=== PATIENT | female | born 2000 ===

== ENCOUNTER 2021-04-25 19:47 | Emergency (ER) | payer SELFPAY | END 2021-04-26 04:24 | LOC: ED 19:47 | DX: F10.20 Alcohol dependence, uncomplicated (principal); Y90.9 Presence of alcohol in blood, level not specified; Z53.21 Procedure and treatment not carried out due to patient leaving prior to being seen by health care provider ==

== ENCOUNTER 2021-04-27 16:25 | Inpatient (IN) | payer SELFPAY ==
--- NOTE | 2021-04-27 16:46 | Emergency Department Report ---
HPI - General Time Seen by Provider: 04/27/21 16:42 - HPI HPI: This is a 21-year-old female who presents to the emergency department requesting detox after using cocaine and methamphetamines, but who also appears to need a mental health evaluation evaluation. Patient says that she last used methamphetamines earlier today and used cocaine within the last few days. The patient is having both auditory and visual hallucinations. During my initial examination, the patient says "this girl who keeps talking is going to drive me crazy." While I am chaperoned by Fabricio, there there is no female ED staff in our facility that she could be over hearing. The patient also points to some type of visual hallucinations that she sees on the norris. She admits to suicidal delilah ations but occur "all the time." She denies any homicidal ideations. She denies any past medical history as she says that she does not follow-up with a primary care physician. She says that in the past she has been diagnosed with anxiety and depression but does not take any medications for this regularly. ED Review of Systems ROS: Stated complaint: DETOX Other details as noted in HPI Comment: All other systems reviewed and negative Constitutional: denies: chills, fever Respiratory: denies: cough, shortness of breath Cardiovascular: denies: chest pain, palpitations Gastrointestinal: denies: abdominal pain, vomiting Musculoskeletal: denies: back pain, arthralgia Skin: denies: rash, lesions Neurological: denies: headache, weakness Psychiatric: auditory hallucinations, visual hallucinations, suicidal thoughts Physical Exam - Physical Exam Physical Exam: GENERAL: The patient is ill-appearing. HENT: Normocephalic. Atraumatic. Patient has moist mucous membranes. EYES: Extraocular motions are intact. Pupils equal reactive to light bilaterally. NECK: Supple. Trachea is midline. CHEST/LUNGS: Clear to auscultation. There is no respiratory distress noted. HEART/CARDIOVASCULAR: Regular. There is moderate tachycardia. There is no murmur. ABDOMEN: Abdomen is soft, nontender. Patient has normal bowel sounds. There is no abdominal distention. SKIN: Skin is warm and dry. NEURO: The patient is awake, alert. Follows commands. No slurred speech. MUSCULOSKELETAL: There is no tenderness or deformity. There is no limitation range of motion. PSYCH: The patient expresses both auditory and visual hallucinations. ED Medical Decision Making - Lab Data Result diagrams: 04/27/21 16:55 04/27/21 16:55 Lab Results 04/27/21 04/27/21 04/27/21 Range/Units 16:55 16:55 16:55 WBC 15.0 H (4.5-11.0) K/mm3 RBC 3.91 (3.65-5.03) M/mm3 Hgb 13.2 (10.1-14.3) gm/dl Hct 37.8 (30.3-42.9) % MCV 97 (79-97) fl MCH 34 H (28-32) pg MCHC 35 H (30-34) % RDW 12.5 L (13.2-15.2) % Plt Count 222 (140-440) K/mm3 Lymph % (Auto) 5.3 L (13.4-35.0) % Dunn % (Auto) 7.8 H (0.0-7.3) % Eos % (Auto) 0.0 (0.0-4.3) % Baso % (Auto) 0.4 (0.0-1.8) % Lymph # (Auto) 0.8 L (1.2-5.4) K/mm3 Dunn # (Auto) 1.2 H (0.0-0.8) K/mm3 Eos # (Auto) 0.0 (0.0-0.4) K/mm3 Baso # (Auto) 0.1 (0.0-0.1) K/mm3 Seg Neutrophils % 86.5 H (40.0-70.0) % Seg Neutrophils # 13.0 H (1.8-7.7) K/mm3 Sodium 138 (137-145) mmol/L Potassium 3.8 (3.6-5.0) mmol/L Chloride 97.9 L (98-107) mmol/L Carbon Dioxide 27 (22-30) mmol/L Anion Gap 17 mmol/L BUN 14 (7-17) mg/dL Creatinine 0.6 (0.6-1.2) mg/dL Estimated GFR > 60 ml/min BUN/Creatinine Ratio 23 % Glucose 134 H (65-100) mg/dL Calcium 10.5 H (8.4-10.2) mg/dL Magnesium (1.7-2.3) mg/dL HCG, Qual (Negative) Plasma/Serum Alcohol < 0.01 (0-0.07) % 04/27/21 04/27/21 Range/Units 16:55 19:35 WBC (4.5-11.0) K/mm3 RBC (3.65-5.03) M/mm3 Hgb (10.1-14.3) gm/dl Hct (30.3-42.9) % MCV (79-97) fl MCH (28-32) pg MCHC (30-34) % RDW (13.2-15.2) % Plt Count (140-440) K/mm3 Lymph % (Auto) (13.4-35.0) % Dunn % (Auto) (0.0-7.3) % Eos % (Auto) (0.0-4.3) % Baso % (Auto) (0.0-1.8) % Lymph # (Auto) (1.2-5.4) K/mm3 Dunn # (Auto) (0.0-0.8) K/mm3 Eos # (Auto) (0.0-0.4) K/mm3 Baso # (Auto) (0.0-0.1) K/mm3 Seg Neutrophils % (40.0-70.0) % Seg Neutrophils # (1.8-7.7) K/mm3 Sodium (137-145) mmol/L Potassium (3.6-5.0) mmol/L Chloride (98-107) mmol/L Carbon Dioxide (22-30) mmol/L Anion Gap mmol/L BUN (7-17) mg/dL Creatinine (0.6-1.2) mg/dL Estimated GFR ml/min BUN/Creatinine Ratio % Glucose (65-100) mg/dL Calcium (8.4-10.2) mg/dL Magnesium 1.80 (1.7-2.3) mg/dL HCG, Qual Negative (Negative) Plasma/Serum Alcohol (0-0.07) % - Medical Decision Making Initially this patient came in with a complaint of methamphetamine use this morning and recent cocaine use. She is having auditory hallucinations and visual hallucinations. The patient complains of suicidal ideations and for this reason was placed on a 1013 and an ED hold. The patient has moderate tachycardia of about 125 bpm. Initially she is awake, alert and following commands. The patient later admits to a history of alcohol dependence and that she has not had any alcohol for about 24 hours. She appears to be having alcohol withdrawal symptoms and throughout her ED course she has started to decline and it has turned into delirium tremens. The patient has become very tremulous, agitated, has started to respond to internal stimuli. Patient has a high CIWA score and has been given 4 mg of Ativan. She is not redirectable. It does not appear that the patient can be medically cleared for outpatient detox at this time. She will be admitted to the hospital for further evaluation and treatment and was accepted for admission by the hospitalist, Dr. Calvo. Critical Care Time: Yes Critical care time in (mins) excluding proc time.: 35 Critical care attestation.: If time is entered above; I have spent that time in minutes in the direct care of this critically ill patient, excluding procedure time. Critical care time was spent on this patient in doing her initial evaluation, multiple reevaluations, ordering and interpretation of labs, IV fluid resuscitation, anxiolytics as per the [facility] protocol. Critical Care Time: 35 minutes ED Disposition Clinical Impression: Delirium tremens, Polysubstance abuse Alcohol withdrawal Qualifiers: Complication of substance-induced condition: with delirium Qualified Code(s): F10.231 - Alcohol dependence with withdrawal delirium Disposition: ADMITTED INPATIENT Is pt being admited?: Yes Condition: Serious Time of Disposition: 23:30
[2021-04-27 17:37] LABS: Blood Urea Nitrogen 14 mg/dL (7-17); Calcium 10.5 mg/dL (8.4-10.2); Hemolysis Index 10
[2021-04-27 17:39] LABS: BUN/Creatinine Ratio 23
[2021-04-27 17:54] LABS: Basophils # (Auto) 0.1 K/mm3 (0.0-0.1); Basophils % (Auto) 0.4 % (0.0-1.8); Hematocrit 37.8 % (30.3-42.9); Hemoglobin 13.2 gm/dl (10.1-14.3); Lymphocytes # (Auto) 0.8 K/mm3 (1.2-5.4); Lymphocytes % (Auto) 5.3 % (13.4-35.0); Mean Corpuscular HGB Conc 35 % (30-34); Mean Corpuscular Volume 97 fl (79-97); Monocytes # (Auto) 1.2 K/mm3 (0.0-0.8); Monocytes % (Auto) 7.8 % (0.0-7.3); Platelet Count 222 K/mm3 (140-440); Red Blood Count 3.91 M/mm3 (3.65-5.03); Red Cell Distribution Width 12.5 % (13.2-15.2)
[2021-04-27] MEDS ORDERED: ALPRAZolam 1 MG TAB PO ONE (19:00)
[2021-04-27] MEDS ORDERED: THIAMINE 100 MG, FOLIC ACID 1 MG, MULTIPLE VITAMIN INJ, ADULT 10 ML in SODIUM CHLORIDE ... IV ONE (19:35)
[2021-04-27] MEDS: LORazepam 2 MG/ML VIAL IV PRN ×2 (20:31→22:52)
[2021-04-27] MEDS ORDERED: methylPREDNISolone Sod Succinate 125 MG/2 ML INJ IV ONE (23:24)
[2021-04-27] MEDS ORDERED: diphenhydrAMINE 50 MG/ML VIAL IV ONE (23:24)
[2021-04-27] MEDS ORDERED: ALBUTEROL 2.5 MG/3 ML NEBU IH PRN (23:48)
[2021-04-27] MEDS ORDERED: HYDROmorphone 1 MG/1 ML INJ IV PRN (23:48)
[2021-04-27] MEDS ORDERED: ONDANSETRON 4 MG/2 ML INJ IV PRN (23:48)
[2021-04-27] MEDS ORDERED: ACETAMINOPHEN 325 MG TAB PO PRN (23:48)
[2021-04-27] MEDS ORDERED: oxyCODONE /ACETAMINOPHEN 5-325MG TAB PO PRN (23:48)
--- NOTE | 2021-04-28 00:02 | History and Physical Report ---
History of Present Illness Date of examination: 04/27/21 Date of admission: 04/27/21 Chief complaint: Delirium tremens Polysubstance abuse History of present illness: 21-year-old female with past medical history of anxiety depression and polysubstance abuse including cocaine and meth amphetamine was brought to the emergency department requesting detox after using cocaine and methamphetamines, but who also appears to need a mental health evaluation evaluation. Patient says that she last used methamphetamines earlier today and used cocaine within the last few days. The patient is having both auditory and visual hallucinations. During my initial examination, the patient says "this girl who keeps talking is going to drive me crazy." there there is no female ED staff in our facility that she could be over hearing. The patient also points to some type of visual hallucinations that she sees on the norris. She admits to suicidal ideations but occur "all the time." She denies any homicidal ideations. In the ER patient is found to have delirium tremens. She was going to admit the patient be consult psych and put the patient on CIWA protocol. Patient has some swelling of the lips due to some allergic reaction. We monitor the patient c losely Past History Past Medical History: other (Anxiety depression) Medications and Allergies Allergies Allergy/AdvReac Type Severity Reaction Status Date / Time No Known Allergies Allergy Unverified 04/27/21 18:27 Active Meds: Active Medications Acetaminophen (Acetaminophen 325 Mg Tab) 650 mg PO Q4H PRN PRN Reason: Pain MILD(1-3)/Fever >100.5/MISHRA Albuterol (Albuterol 2.5 Mg/3 Ml Nebu) 2.5 mg IH Q4HRT PRN PRN Reason: Shortness Of Breath Famotidine (Famotidine 20 Mg/2 Ml Inj) 20 mg IV BID MARÍA Haloperidol Lactate (Haloperidol Lactate 5 Mg/1 Ml Inj) 5 mg IV Q1H PRN PRN Reason: Unrespon. to mult. doses BZD's Heparin Sodium (Porcine) (Heparin 5,000 Unit/1 Ml Vial) 5,000 unit SUB-Q Q12HR MARÍA Hydromorphone HCl (Hydromorphone 1 Mg/1 Ml Inj) 0.5 mg IV Q3H PRN PRN Reason: Pain , Severe (7-10) Dextrose/Sodium Chloride (D5/0.45ns) 1,000 mls @ 100 mls/hr IV DIRECT MARÍA Lorazepam (Lorazepam 2 Mg/Ml Vial) 2 mg IV Q1HR PRN PRN Reason: OPALKvng 8-15 Last Admin: 04/27/21 20:31 Dose: 2 mg Documented by: Lorazepam (Lorazepam 2 Mg/Ml Vial) 4 mg IV Q1HR PRN PRN Reason: Ez 16-25 Last Admin: 04/27/21 22:52 Dose: 4 mg Documented by: Ondansetron HCl (Ondansetron 4 Mg/2 Ml Inj) 4 mg IV Q8H PRN PRN Reason: Nausea And Vomiting Oxycodone/Acetaminophen (Oxycodone /Acetaminophen 5-325mg Tab) 1 tab PO Q6H PRN PRN Reason: Pain, Moderate (4-6) Sodium Chloride (Sodium Chloride 0.9% 10 Ml Flush Syringe) 10 ml IV BID MARÍA Sodium Chloride (Sodium Chloride 0.9% 10 Ml Flush Syringe) 10 ml IV PRN PRN PRN Reason: LINE FLUSH Review of Systems All systems: negative Constitutional: other (Alcohol abuse, cocaine and methamphetamine abuse) Psychiatric: depression, anxiety attacks Exam - Constitutional Vitals: Temp Pulse Resp BP Pulse Ox 98.6 F 101 H 19 131/92 98 04/27/21 17:43 04/27/21 22:55 04/27/21 22:55 04/27/21 22:55 04/27/21 22:55 General appearance: Present: mild distress, well-nourished - EENT Eyes: Present: PERRL ENT: hearing intact, clear oral mucosa, other (Swelling of the upper lips) - Neck Neck: Present: supple, normal ROM - Respiratory Respiratory effort: normal Respiratory: bilateral: CTA - Cardiovascular Heart Sounds: Present: S1 & S2. Absent: rub, click - Extremities Extremities: pulses symmetrical, No edema Peripheral Pulses: within normal limits - Abdominal General gastrointestinal: Present: soft, non-tender, non-distended, normal bowel sounds Female genitourinary: Present: normal - Integumentary Integumentary: Present: clear, warm, dry - Musculoskeletal Musculoskeletal: gait normal, strength equal bilaterally - Psychiatric Psychiatric: appropriate mood/affect, intact judgment & insight - Neurologic Neurologic: CNII-XII intact, moves all extremities Results - Labs CBC & Chem 7: 04/27/21 16:55 04/27/21 16:55 Labs: Laboratory Last Values WBC 15.0 K/mm3 (4.5-11.0) H 04/27/21 16:55 RBC 3.91 M/mm3 (3.65-5.03) 04/27/21 16:55 Hgb 13.2 gm/dl (10.1-14.3) 04/27/21 16:55 Hct 37.8 % (30.3-42.9) 04/27/21 16:55 MCV 97 fl (79-97) 04/27/21 16:55 MCH 34 pg (28-32) H 04/27/21 16:55 MCHC 35 % (30-34) H 04/27/21 16:55 RDW 12.5 % (13.2-15.2) L 04/27/21 16:55 Plt Count 222 K/mm3 (140-440) 04/27/21 16:55 Lymph % (Auto) 5.3 % (13.4-35.0) L 04/27/21 16:55 [place] % (Auto) 7.8 % (0.0-7.3) H 04/27/21 16:55 Eos % (Auto) 0.0 % (0.0-4.3) 04/27/21 16:55 Baso % (Auto) 0.4 % (0.0-1.8) 04/27/21 16:55 Lymph # (Auto) 0.8 K/mm3 (1.2-5.4) L 04/27/21 16:55 [place] # (Auto) 1.2 K/mm3 (0.0-0.8) H 04/27/21 16:55 Eos # (Auto) 0.0 K/mm3 (0.0-0.4) 04/27/21 16:55 Baso # (Auto) 0.1 K/mm3 (0.0-0.1) 04/27/21 16:55 Seg Neutrophils % 86.5 % (40.0-70.0) H 04/27/21 16:55 Seg Neutrophils # 13.0 K/mm3 (1.8-7.7) H 04/27/21 16:55 Sodium 138 mmol/L (137-145) 04/27/21 16:55 Potassium 3.8 mmol/L (3.6-5.0) 04/27/21 16:55 Chloride 97.9 mmol/L (98-107) L 04/27/21 16:55 Carbon Dioxide 27 mmol/L (22-30) 04/27/21 16:55 Anion Gap 17 mmol/L 04/27/21 16:55 BUN 14 mg/dL (7-17) 04/27/21 16:55 Creatinine 0.6 mg/dL (0.6-1.2) 04/27/21 16:55 Estimated GFR > 60 ml/min 04/27/21 16:55 BUN/Creatinine Ratio 23 % 04/27/21 16:55 Glucose 134 mg/dL (65-100) H 04/27/21 16:55 Calcium 10.5 mg/dL (8.4-10.2) H 04/27/21 16:55 Magnesium 1.80 mg/dL (1.7-2.3) 04/27/21 19:35 HCG, Qual Negative (Negative) 04/27/21 16:55 Plasma/Serum Alcohol < 0.01 % (0-0.07) 04/27/21 16:55 Assessment and Plan VTE prophylaxis?: Chemical Plan of care discussed with patient/family: Yes - Patient Problems (1) Alcohol withdrawal Status: Acute Qualifiers: Complication of substance-induced condition: with delirium Qualified Code(s): F10.231 - Alcohol dependence with withdrawal delirium Plan to address problem: Admit the patient to the medical floor. N.p.o. IV fluid D5 half-normal saline at the rate of 100 cc/h. We counseled the patient regarding quit drinking. We put the patient on CIWA protocol. We also put the patient thiamine folic acid and banana bag IV daily. We will consult psych for evaluation. (2) Delirium tremens Status: Acute Plan to address problem: N.p.o. IV fluid D5 half-normal saline at the rate of 100 cc/h. We counseled the patient regarding quit drinking. We put the patient on CIWA protocol. We also put the patient thiamine folic acid and banana bag IV daily. We will consult psych for evaluation. (3) Polysubstance abuse Status: Acute Plan to address problem: We counseled the patient regarding quit taking cocaine alcohol and methamphetamine. Reconsult psych for evaluation (4) Swelling of upper lip Status: Acute Plan to address problem: Patient has swelling of the upper lips due to some allergic reaction. We put the patient some Benadryl 25 mg IV every 8 hours as needed and Solu-Medrol 40 mg IV every 8 hours. We will monitor the patient closely (5) DVT prophylaxis Status: Acute Plan to address problem: Heparin 5000 units subcu every 8 hours for DVT prophylaxis. Pepcid 20 mg IV twice daily for GI prophylaxis. Patient is a full code
[2021-04-28] MEDS ORDERED: diphenhydrAMINE 50 MG/ML VIAL IV PRN (00:06)
[2021-04-28] MEDS: HALOPERIDOL LACTATE 5 MG/1 ML INJ IV PRN (00:43)
[2021-04-28 00:50] LABS: Albumin 5.4 g/dL (3.9-5); Bilirubin,Direct 0.4 mg/dL (0-0.2)
[2021-04-28] MEDS ORDERED: 1: FOLIC ACID 1 MG, MULTIPLE VITAMIN INJ, ADULT 10 ML, THIAMINE 100 MG in SODIUM CHLORID IV SCH (01:00)
[2021-04-28 01:07] LABS: Amphetamine Screen,Urine PRESUMPTIVE POSITIVE; Benzodiazepines Screen,Urine PRESUMPTIVE NEGATIVE; Cannabinoid Screen,Urine PRESUMPTIVE POSITIVE; Cocaine Screen,Urine PRESUMPTIVE NEGATIVE; Methadone Screen,Urine PRESUMPTIVE NEGATIVE; Opiate Screen,Urine PRESUMPTIVE NEGATIVE
[2021-04-28 01:14] LABS: Bacteria,Urine 3+ /HPF (Negative); Bilirubin,Urine NEG (Negative); Blood,Urine NEG (Negative); Color,Urine Amber (Yellow); Mucus,Urine 3+ /HPF
[2021-04-28 05:28] LABS: Hematocrit 38.1 % (30.3-42.9); Mean Corpuscular HGB Conc 34 % (30-34); Mean Corpuscular Volume 97 fl (79-97); Platelet Count 187 K/mm3 (140-440); Red Blood Count 3.91 M/mm3 (3.65-5.03); Red Cell Distribution Width 12.7 % (13.2-15.2)
[2021-04-28 05:47] LABS: BUN/Creatinine Ratio 23; Blood Urea Nitrogen 14 mg/dL (7-17); Calcium 9.9 mg/dL (8.4-10.2); Hemolysis Index 3
[2021-04-28 06:39] LABS: Band Neutrophils # (Manual) 0.4 K/mm3; Platelet Estimate Consistent w Auto; RBC Morphology Normal; Total Cells Counted 100
[2021-04-28] MEDS: cefTRIAXone/NS 2 GM/100 ML 2 GM/100 ML BAG IV SCH (07:33)
[2021-04-28] MEDS: methylPREDNISolone Sod Succinate 40 MG/1 ML INJ IV SCH ×2 (08:00→16:41)
[2021-04-28] MEDS: HEPARIN 5,000 UNIT/1 ML VIAL SUB-Q SCH ×2 (10:00→22:42)
[2021-04-28] MEDS: FAMOTIDINE 20 MG/2 ML INJ IV SCH ×2 (10:00→22:42)
--- NOTE | 2021-04-28 11:57 | Consultation ---
History of Present Illness - Reason for Consult Consult date: 04/28/21 Reason for consult: detox, SI - History of Present Psychiatric Illness Per ER Note: This is a 21-year-old female who presents to the emergency department requesting detox after using cocaine and methamphetamines, but who also appears to need a mental health evaluation evaluation. Patient says that she last used methamphetamines earlier today and used cocaine within the last few days. The patient is having both auditory and visual hallucinations. During my initial examination, the patient says "this girl who keeps talking is going to drive me crazy." While I am chaperoned by Fabricio, there there is no female ED staff in our facility that she could be over hearing. The patient also points to some type of visual hallucinations that she sees on the norris. She admits to suicidal ideations but occur "all the time." She denies any homicidal ideations. She denies any past medical history as she says that she does not follow-up with a primary care physician. She says that in the past she has been diagnosed with anxiety and depression but does not take any medica tions for this regularly. Taniya Lowery is a 21y/o female patient who was seen today. The patient is a/o x 3. She endorses SI, but denies a plan. She denies HI. The patient says she needs detox from alcohol. She says "other stuff like cocaine and ice but mostly alcohol." The patient also states she hears voices of other people. She denies being on any psych meds or seeing a psychiatrist on an outpatient basis. PAST PSYCHIATRIC HISTORY: Diagnoses: anxiety and depression Suicide attempts or Self-harm behavior: Yes Prior psychiatric hospitalizations: denies Substance Abuse history: meth, cocaine Previous psychiatric medications tried: Denies Outpatient treatment: Denies PAST MEDICAL HISTORY: None reported or document Family Psychiatric History: None reported or documented SOCIAL HISTORY Marital Status: Single Living Arrangements: homeless Employment Status: employed Access to guns/weapons: Denies Education: History of Abuse: Denies Legal History: Denies REVIEW OF SYSTEMS Constitutional: Negative for weight loss ENT: Negative for stridor Respiratory: Negative for cough or hemoptysis All other systems reviewed and are negative MENTAL STATUS EXAMINATION General Appearance and Behavior: Age appropriate, good hygiene, wearing appropriate clothes. Cooperation: Cooperative Psychomotor Behavior: Psychomotor normal Mood: depressed Affect and affective range: congruent with stated mood Thought Process: Goal directed Thought Content: SI, hallucinations Speech: Normal volume, Regular rate and rhythm, Suicidal Ideation: Yes Homicidal Ideation: Denies Hallucinations: Auditory Delusions: None Impulse Control: Questionable Insight and Judgment: Limited Memory: Limited Attention: Distractible Orientation: alert and oriented Assessment and Plan (1)Polysubstance abuse (2) MDD Treatment Plan 1013 Agree with CIWA Olanzapine 5mg po daily Trazodone 50mg po qhs Zoloft 25mg po daily SItter: per primary Medical: per primary Disposition: Recommend acute psychiatric inpatient treatment Case staffed with Dr. Salinas Medications and Allergies Allergies Allergy/AdvReac Type Severity Reaction Status Date / Time No Known Allergies Allergy Unverified 04/27/21 18:27 Active Meds: Active Medications Acetaminophen (Acetaminophen 325 Mg Tab) 650 mg PO Q4H PRN PRN Reason: Pain MILD(1-3)/Fever >100.5/MISHRA Albuterol (Albuterol 2.5 Mg/3 Ml Nebu) 2.5 mg IH Q4HRT PRN PRN Reason: Shortness Of Breath Diphenhydramine HCl (Diphenhydramine 50 Mg/Ml Vial) 25 mg IV Q8H PRN PRN Reason: Rash Stop: 04/29/21 00:05 Famotidine (Famotidine 20 Mg/2 Ml Inj) 20 mg IV BID MARÍA Haloperidol Lactate (Haloperidol Lactate 5 Mg/1 Ml Inj) 5 mg IV Q1H PRN PRN Reason: Unrespon. to mult. doses BZD's Last Admin: 04/28/21 00:43 Dose: 5 mg Documented by: Heparin Sodium (Porcine) (Heparin 5,000 Unit/1 Ml Vial) 5,000 unit SUB-Q Q12HR MARÍA Hydromorphone HCl (Hydromorphone 1 Mg/1 Ml Inj) 0.5 mg IV Q3H PRN PRN Reason: Pain , Severe (7-10) Dextrose/Sodium Chloride (D5/0.45ns) 1,000 mls @ 100 mls/hr IV DIRECT MARÍA Ceftriaxone Sodium (Rocephin/Ns 2 Gm/100 Ml) 2 gm in 100 mls @ 200 mls/hr IV Q24H MARÍA; Protocol Last Admin: 04/28/21 07:33 Dose: Not Given Documented by: Thiamine HCl 100 mg/ Folic Acid 1 mg/ Multivitamins/Minerals 10 ml/ Sodium Chloride 1,011.2 mls @ 125 mls/hr IV Q24H [facility] Lorazepam (Lorazepam 2 Mg/Ml Vial) 2 mg IV Q1HR PRN PRN Reason: Ez 8-15 Last Admin: 04/27/21 20:31 Dose: 2 mg Documented by: Lorazepam (Lorazepam 2 Mg/Ml Vial) 4 mg IV Q1HR PRN PRN Reason: Ez 16- Last Admin: 04/27/21 22:52 Dose: 4 mg Documented by: Methylprednisolone Sodium Succinate (Methylprednisolone Sod Succinate 40 Mg/1 Ml Inj) 40 mg IV Q8H MARÍA Stop: 04/29/21 07:59 Last Admin: 04/28/21 08:00 Dose: 40 mg Documented by: Ondansetron HCl (Ondansetron 4 Mg/2 Ml Inj) 4 mg IV Q8H PRN PRN Reason: Nausea And Vomiting Oxycodone/Acetaminophen (Oxycodone /Acetaminophen 5-325mg Tab) 1 tab PO Q6H PRN PRN Reason: Pain, Moderate (4-6) Sodium Chloride (Sodium Chloride 0.9% 10 Ml Flush Syringe) 10 ml IV BID MARÍA Sodium Chloride (Sodium Chloride 0.9% 10 Ml Flush Syringe) 10 ml IV PRN PRN PRN Reason: LINE FLUSH Mental Status Exam - Vital signs Last Vital Signs Temp 98.6 F 04/27/21 17:43 Pulse 72 04/28/21 10:15 Resp 18 04/28/21 10:15 BP 120/79 04/28/21 10:15 Pulse Ox 100 04/28/21 10:15 Results Result Diagrams: 04/28/21 04:56 04/28/21 04:56 Abnormal lab results 04/27/21 04/27/21 04/27/21 Range/Units 16:48 16:55 16:55 WBC 15.0 H (4.5-11.0) K/mm3 MCH 34 H (28-32) pg MCHC 35 H (30-34) % RDW 12.5 L (13.2-15.2) % Lymph % (Auto) 5.3 L (13.4-35.0) % Terry % (Auto) 7.8 H (0.0-7.3) % Lymph # (Auto) 0.8 L (1.2-5.4) K/mm3 Terry # (Auto) 1.2 H (0.0-0.8) K/mm3 Seg Neutrophils % 86.5 H (40.0-70.0) % Seg Neuts % (Manual) (40.0-70.0) % Lymphocytes % (Manual) (13.4-35.0) % Seg Neutrophils # 13.0 H (1.8-7.7) K/mm3 Seg Neutrophils # Man (1.8-7.7) K/mm3 Lymphocytes # (Manual) (1.2-5.4) K/mm3 Chloride 97.9 L (98-107) mmol/L Glucose 134 H (65-100) mg/dL Calcium 10.5 H (8.4-10.2) mg/dL Total Bilirubin 1.70 H (0.1-1.2) mg/dL Direct Bilirubin 0.4 H (0-0.2) mg/dL AST 76 H (5-40) units/L Total Protein 8.4 H (6.3-8.2) g/dL Albumin 5.4 H (3.9-5) g/dL Urine WBC (Auto) (0.0-6.0) /HPF 04/28/21 04/28/21 04/28/21 Range/Units 04:56 04:56 Unknown WBC 13.3 H (4.5-11.0) K/mm3 MCH 33 H (28-32) pg MCHC (30-34) % RDW 12.7 L (13.2-15.2) % Lymph % (Auto) (13.4-35.0) % Terry % (Auto) (0.0-7.3) % Lymph # (Auto) (1.2-5.4) K/mm3 Terry # (Auto) (0.0-0.8) K/mm3 Seg Neutrophils % (40.0-70.0) % Seg Neuts % (Manual) 88.0 H (40.0-70.0) % Lymphocytes % (Manual) 4.0 L (13.4-35.0) % Seg Neutrophils # (1.8-7.7) K/mm3 Seg Neutrophils # Man 11.7 H (1.8-7.7) K/mm3 Lymphocytes # (Manual) 0.5 L (1.2-5.4) K/mm3 Chloride (98-107) mmol/L Glucose 147 H (65-100) mg/dL Calcium (8.4-10.2) mg/dL Total Bilirubin (0.1-1.2) mg/dL Direct Bilirubin (0-0.2) mg/dL AST (5-40) units/L Total Protein (6.3-8.2) g/dL Albumin (3.9-5) g/dL Urine WBC (Auto) 13.0 H (0.0-6.0) /HPF All other labs normal.
--- NOTE | 2021-04-28 13:16 | Progress Note ---
Assessment and Plan Assessment and plan: (1) Alcohol withdrawal Status: Acute Qualifiers: Complication of substance-induced condition: with delirium Qualified Code(s): F10.231 - Alcohol dependence with withdrawal delirium Plan to address problem: Admit the patient to the medical floor. N.p.o. IV fluid D5 half-normal saline at the rate of 100 cc/h. We counseled the patient regarding quit drinking. We put the patient on CIWA protocol. We also put the patient thiamine folic acid and banana bag IV daily. We will consult psych for evaluation. (2) Delirium tremens Status: Acute Plan to address problem: N.p.o. IV fluid D5 half-normal saline at the rate of 100 cc/h. We counseled the patient regarding quit drinking. We put the patient on CIWA protocol. We also put the patient thiamine folic acid and banana bag IV daily. We will consult psych for evaluation. (3) Polysubstance abuse Status: Acute Plan to address problem: We counseled the patient regarding quit taking cocaine alcohol and methamphetamine. Reconsult psych for evaluation (4) Swelling of upper lip Status: Acute Plan to address problem: Patient has swelling of the upper lips due to some allergic reaction. We put the patient some Benadryl 25 mg IV every 8 hours as needed and Solu-Medrol 40 mg IV every 8 hours. We will monitor the patient closely (5) DVT prophylaxis Status: Acute Plan to address problem: Heparin 5000 units subcu every 8 hours for DVT prophylaxis. Pepcid 20 mg IV twice daily for GI prophylaxis. Patient is a full code 04/28/21 patient with Polysubstace abuse with cocaine, methamphetamine, alcohol abuse. She has delirium tremens with ahallucinations. She needs inpatient management. patient has swollen upper lip, occured here. Its unclear if reaction to medication. Nurse states it started after "Banana bag" History Interval history: Altered mental status Tremors Substance abuse Upper lip swelling Hospitalist Physical - Physical exam Narrative exam: Gen:Not in acute distress, lying in bed HEENT: Upper lip swollen, Neck:supple, no JVD Lungs: clear to auscultation ,no wheeze Heart:S1 and S2 reg, no murmurs, rubs or gallop Abd:Soft, non tender, non distended, normal bowel sounds Ext:No edema. no clubbing, no cyanosis Neuro:Awake, alert, oriented X 3, moves all ext - Constitutional Vitals: Temp Pulse Resp BP Pulse Ox 98.6 F 68 12 116/68 100 04/27/21 17:43 04/28/21 12:01 04/28/21 12:01 04/28/21 12:01 04/28/21 12:01 Results - Labs CBC & Chem 7: 04/28/21 04:56 04/28/21 04:56 Labs: Laboratory Last Values WBC 13.3 K/mm3 (4.5-11.0) H 04/28/21 04:56 RBC 3.91 M/mm3 (3.65-5.03) 04/28/21 04:56 Hgb 13.0 gm/dl (10.1-14.3) 04/28/21 04:56 Hct 38.1 % (30.3-42.9) 04/28/21 04:56 MCV 97 fl (79-97) 04/28/21 04:56 MCH 33 pg (28-32) H 04/28/21 04:56 MCHC 34 % (30-34) 04/28/21 04:56 RDW 12.7 % (13.2-15.2) L 04/28/21 04:56 Plt Count 187 K/mm3 (140-440) 04/28/21 04:56 Lymph % (Auto) 5.3 % (13.4-35.0) L 04/27/21 16:55 Divide % (Auto) 7.8 % (0.0-7.3) H 04/27/21 16:55 Eos % (Auto) 0.0 % (0.0-4.3) 04/27/21 16:55 Baso % (Auto) 0.4 % (0.0-1.8) 04/27/21 16:55 Lymph # (Auto) 0.8 K/mm3 (1.2-5.4) L 04/27/21 16:55 Divide # (Auto) 1.2 K/mm3 (0.0-0.8) H 04/27/21 16:55 Eos # (Auto) 0.0 K/mm3 (0.0-0.4) 04/27/21 16:55 Baso # (Auto) 0.1 K/mm3 (0.0-0.1) 04/27/21 16:55 Add Manual Diff Complete 04/28/21 04:56 Total Counted 100 04/28/21 04:56 Seg Neutrophils % [employer] Super[employer] 04/28/21 04:56 Seg Neuts % (Manual) 88.0 % (40.0-70.0) H 04/28/21 04:56 Band Neutrophils % 3.0 % 04/28/21 04:56 Lymphocytes % (Manual) 4.0 % (13.4-35.0) L 04/28/21 04:56 Monocytes % (Manual) 5.0 % (0.0-7.3) 04/28/21 04:56 Nucleated RBC % Not Reportable 04/28/21 04:56 Seg Neutrophils # 13.0 K/mm3 (1.8-7.7) H 04/27/21 16:55 Seg Neutrophils # Man 11.7 K/mm3 (1.8-7.7) H 04/28/21 04:56 Band Neutrophils # 0.4 K/mm3 04/28/21 04:56 Lymphocytes # (Manual) 0.5 K/mm3 (1.2-5.4) L 04/28/21 04:56 Abs React Lymphs (Man) 0.0 K/mm3 04/28/21 04:56 Monocytes # (Manual) 0.7 K/mm3 (0.0-0.8) 04/28/21 04:56 Eosinophils # (Manual) 0.0 K/mm3 (0.0-0.4) 04/28/21 04:56 Basophils # (Manual) 0.0 K/mm3 (0.0-0.1) 04/28/21 04:56 Metamyelocytes # 0.0 K/mm3 04/28/21 04:56 Myelocytes # 0.0 K/mm3 04/28/21 04:56 Promyelocytes # 0.0 K/mm3 04/28/21 04:56 Blast Cells # 0.0 K/mm3 04/28/21 04:56 WBC Morphology Not Reportable 04/28/21 04:56 Hypersegmented Neuts Not Reportable 04/28/21 04:56 Hyposegmented Neuts Not Reportable 04/28/21 04:56 Hypogranular Neuts Not Reportable 04/28/21 04:56 Smudge Cells Not Reportable 04/28/21 04:56 Toxic Granulation Not Reportable 04/28/21 04:56 Toxic Vacuolation Not Reportable 04/28/21 04:56 Dohle Bodies Not Reportable 04/28/21 04:56 Pelger-Huet Anomaly Not Reportable 04/28/21 04:56 Jerson Rods Not Reportable 04/28/21 04:56 Platelet Estimate Consistent w auto 04/28/21 04:56 Clumped Platelets Not Reportable 04/28/21 04:56 Plt Clumps, EDTA Not Reportable 04/28/21 04:56 Large Platelets Not Reportable 04/28/21 04:56 Giant Platelets Not Reportable 04/28/21 04:56 Platelet Satelliting Not Reportable 04/28/21 04:56 Plt Morphology Comment Not Reportable 04/28/21 04:56 RBC Morphology Normal 04/28/21 04:56 Dimorphic RBCs Not Reportable 04/28/21 04:56 Polychromasia Not Reportable 04/28/21 04:56 Hypochromasia Not Reportable 04/28/21 04:56 Poikilocytosis Not Reportable 04/28/21 04:56 Anisocytosis Not Reportable 04/28/21 04:56 Microcytosis Not Reportable 04/28/21 04:56 Macrocytosis Not Reportable 04/28/21 04:56 Spherocytes Not Reportable 04/28/21 04:56 Pappenheimer Bodies Not Reportable 04/28/21 04:56 Sickle Cells Not Reportable 04/28/21 04:56 Target Cells Not Reportable 04/28/21 04:56 Tear Drop Cells Not Reportable 04/28/21 04:56 Ovalocytes Not Reportable 04/28/21 04:56 Helmet Cells Not Reportable 04/28/21 04:56 Malik-Ramah Bodies Not Reportable 04/28/21 04:56 [place] Rings Not Reportable 04/28/21 04:56 Patricia Cells Not Reportable 04/28/21 04:56 Bite Cells Not Reportable 04/28/21 04:56 Crenated Cell Not Reportable 04/28/21 04:56 Elliptocytes Not Reportable 04/28/21 04:56 Acanthocytes (Spur) Not Reportable 04/28/21 04:56 Rouleaux Not Reportable 04/28/21 04:56 Hemoglobin C Crystals Not Reportable 04/28/21 04:56 Schistocytes Not Reportable 04/28/21 04:56 Malaria parasites Not Reportable 04/28/21 04:56 Yusuf Bodies Not Reportable 04/28/21 04:56 Hem Pathologist Commnt No 04/28/21 04:56 Sodium 139 mmol/L (137-145) 04/28/21 04:56 Potassium 4.0 mmol/L (3.6-5.0) 04/28/21 04:56 Chloride 101.6 mmol/L (98-107) 04/28/21 04:56 Carbon Dioxide 28 mmol/L (22-30) 04/28/21 04:56 Anion Gap 13 mmol/L 04/28/21 04:56 BUN 14 mg/dL (7-17) 04/28/21 04:56 Creatinine 0.6 mg/dL (0.6-1.2) 04/28/21 04:56 Estimated GFR > 60 ml/min 04/28/21 04:56 BUN/Creatinine Ratio 23 % 04/28/21 04:56 Glucose 147 mg/dL (65-100) H 04/28/21 04:56 Calcium 9.9 mg/dL (8.4-10.2) 04/28/21 04:56 Phosphorus 2.80 mg/dL (2.5-4.5) 04/27/21 16:48 Magnesium 1.80 mg/dL (1.7-2.3) 04/27/21 19:35 Total Bilirubin 1.70 mg/dL (0.1-1.2) H 04/27/21 16:48 Direct Bilirubin 0.4 mg/dL (0-0.2) H 04/27/21 16:48 Indirect Bilirubin 1.3 mg/dL 04/27/21 16:48 AST 76 units/L (5-40) H 04/27/21 16:48 ALT 32 units/L (7-56) 04/27/21 16:48 Alkaline Phosphatase 98 units/L (35-129) 04/27/21 16:48 Total Protein 8.4 g/dL (6.3-8.2) H 04/27/21 16:48 Albumin 5.4 g/dL (3.9-5) H 04/27/21 16:48 Albumin/Globulin Ratio 1.8 % 04/27/21 16:48 HCG, Qual Negative (Negative) 04/27/21 16:55 Urine Color [place] (Yellow) 04/28/21 Unknown Urine Turbidity Cloudy (Clear) 04/28/21 Unknown Urine pH 6.0 (5.0-7.0) 04/28/21 Unknown Ur Specific [place] 1.025 (1.003-1.030) 04/28/21 Unknown Urine Protein 100 mg/dl mg/dL (Negative) 04/28/21 Unknown Urine Glucose (UA) Neg mg/dL (Negative) 04/28/21 Unknown Urine Ketones 20 mg/dL (Negative) 04/28/21 Unknown Urine Blood Neg (Negative) 04/28/21 Unknown Urine Nitrite Neg (Negative) 04/28/21 Unknown Urine Bilirubin Neg (Negative) 04/28/21 Unknown Urine Urobilinogen 2.0 mg/dL (<2.0) 04/28/21 Unknown Ur Leukocyte Esterase Neg (Negative) 04/28/21 Unknown Urine WBC (Auto) 13.0 /HPF (0.0-6.0) H 04/28/21 Unknown Urine RBC (Auto) 1.0 /HPF (0.0-6.0) 04/28/21 Unknown U Epithel Cells (Auto) < 1.0 /HPF (0-13.0) 04/28/21 Unknown Urine Bacteria (Auto) 3+ /HPF (Negative) 04/28/21 Unknown Urine Mucus 3+ /HPF 04/28/21 Unknown Urine Opiates Screen Presumptive negative 04/28/21 Unknown Urine Methadone Screen Presumptive negative 04/28/21 Unknown Ur Barbiturates Screen Presumptive negative 04/28/21 Unknown Ur Phencyclidine Scrn Presumptive negative 04/28/21 Unknown Ur Amphetamines Screen Presumptive positive 04/28/21 Unknown U Benzodiazepines Scrn Presumptive negative 04/28/21 Unknown Urine Cocaine Screen Presumptive negative 04/28/21 Unknown U Marijuana (THC) Screen Presumptive positive 04/28/21 Unknown Drugs of Abuse Note Disclamer 04/28/21 Unknown Plasma/Serum Alcohol < 0.01 % (0-0.07) 04/27/21 16:55 Active Medications - Current Medications Current Medications: Generic Name Dose Route Start Last Admin Trade Name Freq PRN Reason Stop Dose Admin Acetaminophen 650 mg 04/27/21 23:48 Acetaminophen 325 Mg Tab PO Q4H PRN Pain MILD(1-3)/Fever >100.5/MISHRA Albuterol 2.5 mg 04/27/21 23:48 Albuterol 2.5 Mg/3 Ml Nebu IH Q4HRT PRN Shortness Of Breath Diphenhydramine HCl 25 mg 04/28/21 00:06 Diphenhydramine 50 Mg/Ml Vial IV 04/29/21 00:05 Q8H PRN Rash Famotidine 20 mg 04/28/21 10:00 04/28/21 10:00 Famotidine 20 Mg/2 Ml Inj IV 20 mg BID MARÍA Administration Haloperidol Lactate 5 mg 04/27/21 23:48 04/28/21 00:43 Haloperidol Lactate 5 Mg/1 Ml Inj IV 5 mg Q1H PRN Administration Unrespon. to mult. doses BZD's Heparin Sodium (Porcine) 5,000 unit 04/28/21 10:00 04/28/21 10:00 Heparin 5,000 Unit/1 Ml Vial SUB-Q 5,000 unit Q12HR MARÍA Administration Hydromorphone HCl 0.5 mg 04/27/21 23:48 Hydromorphone 1 Mg/1 Ml Inj IV Q3H PRN Pain , Severe (7-10) Dextrose/Sodium Chloride 1,000 mls @ 100 mls/hr 04/27/21 23:45 D5/0.45ns IV DIRECT MARÍA Ceftriaxone Sodium 2 gm in 100 mls @ 200 mls/hr 04/28/21 01:00 04/28/21 07:33 Rocephin/Ns 2 Gm/100 Ml IV Not Given Q24H [facility] Protocol Thiamine HCl 100 mg/ Folic 1,011.2 mls @ 125 mls/hr 04/28/21 20:00 Acid 1 mg/ Multivitamins/ IV Minerals 10 ml/ Sodium Q24H [facility] Chloride Lorazepam 2 mg 04/27/21 19:34 04/27/21 20:31 Lorazepam 2 Mg/Ml Vial IV 2 mg Q1HR PRN Administration BRIDGER-Kvng 8-15 Lorazepam 4 mg 04/27/21 19:34 04/27/21 22:52 Lorazepam 2 Mg/Ml Vial IV 4 mg Q1HR PRN Administration OPAL-Kvng 16-25 Methylprednisolone Sodium Succinate 40 mg 04/28/21 08:00 04/28/21 08:00 Methylprednisolone Sod Succinate 40 Mg/1 Ml Inj IV 04/29/21 07:59 40 mg Q8H MARÍA Administration Olanzapine 5 mg 04/28/21 13:00 Olanzapine 5 Mg Tab PO QDAY MARÍA Ondansetron HCl 4 mg 04/27/21 23:48 Ondansetron 4 Mg/2 Ml Inj IV Q8H PRN Nausea And Vomiting Oxycodone/Acetaminophen 1 tab 04/27/21 23:48 Oxycodone /Acetaminophen 5-325mg Tab PO Q6H PRN Pain, Moderate (4-6) Sertraline HCl 25 mg 04/28/21 13:00 Sertraline 25 Mg Tab PO QDAY MARÍA Trazodone HCl 50 mg 04/28/21 22:00 Trazodone 50 Mg Tab PO QHS MARÍA
[2021-04-28] MEDS: SERTRALINE 25 MG TAB PO SCH (13:45)
[2021-04-28] MEDS ORDERED: THIAMINE 100 MG, FOLIC ACID 1 MG, MULTIPLE VITAMIN INJ, ADULT 10 ML in SODIUM CHLORIDE ... IV SCH (20:00)
[2021-04-28] MEDS: traZODone 50 MG TAB PO SCH (22:42)
[2021-04-29] MEDS: methylPREDNISolone Sod Succinate 40 MG/1 ML INJ IV SCH (02:39)
[2021-04-29] MEDS: cefTRIAXone/NS 2 GM/100 ML 2 GM/100 ML BAG IV SCH (02:39)
[2021-04-29] MEDS: D5W/0.45% NACL 1,000 ML IV SCH (03:48)
[2021-04-29 05:04] LABS: Hematocrit 37.2 % (30.3-42.9); Mean Corpuscular HGB Conc 35 % (30-34); Mean Corpuscular Volume 97 fl (79-97); Platelet Count 215 K/mm3 (140-440); Red Blood Count 3.84 M/mm3 (3.65-5.03); Red Cell Distribution Width 12.9 % (13.2-15.2)
[2021-04-29 05:16] LABS: Blood Urea Nitrogen 14 mg/dL (7-17); Calcium 8.8 mg/dL (8.4-10.2); Hemolysis Index 9
[2021-04-29 05:20] LABS: BUN/Creatinine Ratio 28
[2021-04-29] MEDS ORDERED: MAGNESIUM SULFATE 2 GM/50 ML BAG IV ONE (10:00)
[2021-04-29] MEDS: POTASSIUM CHLORIDE ER 20 MEQ TAB PO SCH ×3 (10:38→18:18)
[2021-04-29] MEDS: HEPARIN 5,000 UNIT/1 ML VIAL SUB-Q SCH ×2 (10:38→21:38)
[2021-04-29] MEDS: SERTRALINE 25 MG TAB PO SCH (10:38)
[2021-04-29] MEDS: THIAMINE 100 MG TAB PO SCH (10:38)
[2021-04-29] MEDS: FAMOTIDINE 20 MG/2 ML INJ IV SCH ×2 (10:38→21:38)
--- NOTE | 2021-04-29 11:40 | Progress Note ---
Subjective - Reason for Consult Consult date: 04/29/21 Reason for consult: detox, SI - Chief Complaint Chief complaint: The patient was seen today. She is awake and sitting on side of the bed. A sitter is with her. She says she's feeling anxious. The patient says she has been "seeing people on top of the rooftop trying to shoot me." She denies SI/HI at present. She says "not currently, but it comes and goes." She says the meds appear to be helping her. The patient says her biggest problem is needing rehab. REVIEW OF SYSTEMS Constitutional: Negative for weight loss ENT: Negative for stridor Respiratory: Negative for cough or hemoptysis All other systems reviewed and are negative MENTAL STATUS EXAMINATION General Appearance and Behavior: Age appropriate, good hygiene, wearing appropriate clothes. Cooperation: Cooperative Psychomotor Behavior: Psychomotor normal Mood: depressed Affect and affective range: congruent with stated mood Thought Process: Goal directed Thought Content: hallucinations Speech: Normal volume, Regular rate and rhythm, Suicidal Ideation: denies at present, but comes and goes Homicidal Ideation: Denies Hallucinations: Auditory Delusions: None Impulse Control: Questionable Insight and Judgment: Limited Memory: Limited Attention: Distractible Orientation: alert and oriented Assessment and Plan (1)Polysubstance abuse (2) MDD Treatment Plan 1013 Agree with CIWA Olanzapine 5mg po daily Trazodone 50mg po qhs Zoloft 25mg po daily Start Vistaril 25mg po BID SItter: per primary Medical: per primary Disposition: Recommend acute psychiatric inpatient treatment. The patient is improving, disposition might change once medically clear. Case staffed with Dr. Salinas Mental Status Exam - Vital signs Last Vital Signs Temp 98.3 F 04/29/21 07:45 Pulse 91 H 04/29/21 07:45 Resp 18 04/29/21 07:45 BP 117/65 04/29/21 07:45 Pulse Ox 100 04/29/21 11:15
--- NOTE | 2021-04-29 11:57 | Progress Note ---
Assessment and Plan Assessment and plan: (1) Alcohol withdrawal Status: Acute Qualifiers: Complication of substance-induced condition: with delirium Qualified Code(s): F10.231 - Alcohol dependence with withdrawal delirium Plan to address problem: Admit the patient to the medical floor. N.p.o. IV fluid D5 half-normal saline at the rate of 100 cc/h. We counseled the patient regarding quit drinking. We put the patient on CIWA protocol. We also put the patient thiamine folic acid and banana bag IV daily. We will consult psych for evaluation. (2) Delirium tremens Status: Acute Plan to address problem: N.p.o. IV fluid D5 half-normal saline at the rate of 100 cc/h. We counseled the patient regarding quit drinking. We put the patient on CIWA protocol. We also put the patient thiamine folic acid and banana bag IV daily. We will consult psych for evaluation. (3) Polysubstance abuse Status: Acute Plan to address problem: We counseled the patient regarding quit taking cocaine alcohol and methamphetamine. Reconsult psych for evaluation (4) Swelling of upper lip Status: Acute Plan to address problem: Patient has swelling of the upper lips due to some allergic reaction. We put the patient some Benadryl 25 mg IV every 8 hours as needed and Solu-Medrol 40 mg IV every 8 hours. We will monitor the patient closely (5) DVT prophylaxis Status: Acute Plan to address problem: Heparin 5000 units subcu every 8 hours for DVT prophylaxis. Pepcid 20 mg IV twice daily for GI prophylaxis. Patient is a full code UTI 04/28/21 patient with Polysubstace abuse with cocaine, methamphetamine, alcohol abuse. She has delirium tremens with hallucinations. She needs inpatient management. patient has swollen upper lip, occured here. Its unclear if reaction to medication. Nurse states it started after "Banana bag" 04/29/21 patient with Polysubstace abuse with cocaine, methamphetamine, alcohol abuse. She has delirium tremens with hallucinations. She needs inpatient management. Patient has swollen upper lip, occured here. Its unclear if reaction to medication. Nurse states it started after "Banana bag" Swelling much improved, only minimal swelling now after steroids, pepcid, Benadryl On 1013 hold History Interval history: Altered mental status Tremors Substance abuse Upper lip swelling almost resolved Hospitalist Physical - Physical exam Narrative exam: Gen:Not in acute distress, lying in bed HEENT: Upper lip minimal swelling, Neck:supple, no JVD Lungs: clear to auscultation ,no wheeze Heart:S1 and S2 reg, no murmurs, rubs or gallop Abd:Soft, non tender, non distended, normal bowel sounds Ext:No edema. no clubbing, no cyanosis Neuro:Awake, alert, oriented X 3, moves all ext - Constitutional Vitals: Temp Pulse Resp BP Pulse Ox 98.3 F 91 H 18 117/65 100 04/29/21 07:45 04/29/21 07:45 04/29/21 07:45 04/29/21 07:45 04/29/21 11:15 Results - Labs CBC & Chem 7: 04/29/21 04:05 04/29/21 04:05 Labs: Laboratory Last Values WBC 12.7 K/mm3 (4.5-11.0) H 04/29/21 04:05 RBC 3.84 M/mm3 (3.65-5.03) 04/29/21 04:05 Hgb 13.0 gm/dl (10.1-14.3) 04/29/21 04:05 Hct 37.2 % (30.3-42.9) 04/29/21 04:05 MCV 97 fl (79-97) 04/29/21 04:05 MCH 34 pg (28-32) H 04/29/21 04:05 MCHC 35 % (30-34) H 04/29/21 04:05 RDW 12.9 % (13.2-15.2) L 04/29/21 04:05 Plt Count 215 K/mm3 (140-440) 04/29/21 04:05 Lymph % (Auto) 5.3 % (13.4-35.0) L 04/27/21 16:55 [place] % (Auto) 7.8 % (0.0-7.3) H 04/27/21 16:55 Eos % (Auto) 0.0 % (0.0-4.3) 04/27/21 16:55 Baso % (Auto) 0.4 % (0.0-1.8) 04/27/21 16:55 Lymph # (Auto) 0.8 K/mm3 (1.2-5.4) L 04/27/21 16:55 [place] # (Auto) 1.2 K/mm3 (0.0-0.8) H 04/27/21 16:55 Eos # (Auto) 0.0 K/mm3 (0.0-0.4) 04/27/21 16:55 Baso # (Auto) 0.1 K/mm3 (0.0-0.1) 04/27/21 16:55 Add Manual Diff Complete 04/28/21 04:56 Total Counted 100 04/28/21 04:56 Seg Neutrophils % Submersible Pilot 04/28/21 04:56 Seg Neuts % (Manual) 88.0 % (40.0-70.0) H 04/28/21 04:56 Band Neutrophils % 3.0 % 04/28/21 04:56 Lymphocytes % (Manual) 4.0 % (13.4-35.0) L 04/28/21 04:56 Monocytes % (Manual) 5.0 % (0.0-7.3) 04/28/21 04:56 Nucleated RBC % Not Reportable 04/28/21 04:56 Seg Neutrophils # 13.0 K/mm3 (1.8-7.7) H 04/27/21 16:55 Seg Neutrophils # Man 11.7 K/mm3 (1.8-7.7) H 04/28/21 04:56 Band Neutrophils # 0.4 K/mm3 04/28/21 04:56 Lymphocytes # (Manual) 0.5 K/mm3 (1.2-5.4) L 04/28/21 04:56 Abs React Lymphs (Man) 0.0 K/mm3 04/28/21 04:56 Monocytes # (Manual) 0.7 K/mm3 (0.0-0.8) 04/28/21 04:56 Eosinophils # (Manual) 0.0 K/mm3 (0.0-0.4) 04/28/21 04:56 Basophils # (Manual) 0.0 K/mm3 (0.0-0.1) 04/28/21 04:56 Metamyelocytes # 0.0 K/mm3 04/28/21 04:56 Myelocytes # 0.0 K/mm3 04/28/21 04:56 Promyelocytes # 0.0 K/mm3 04/28/21 04:56 Blast Cells # 0.0 K/mm3 04/28/21 04:56 WBC Morphology Not Reportable 04/28/21 04:56 Hypersegmented Neuts Not Reportable 04/28/21 04:56 Hyposegmented Neuts Not Reportable 04/28/21 04:56 Hypogranular Neuts Not Reportable 04/28/21 04:56 Smudge Cells Not Reportable 04/28/21 04:56 Toxic Granulation Not Reportable 04/28/21 04:56 Toxic Vacuolation Not Reportable 04/28/21 04:56 Dohle Bodies Not Reportable 04/28/21 04:56 Pelger-Huet Anomaly Not Reportable 04/28/21 04:56 Jerson Rods Not Reportable 04/28/21 04:56 Platelet Estimate Consistent w auto 04/28/21 04:56 Clumped Platelets Not Reportable 04/28/21 04:56 Plt Clumps, EDTA Not Reportable 04/28/21 04:56 Large Platelets Not Reportable 04/28/21 04:56 Giant Platelets Not Reportable 04/28/21 04:56 Platelet Satelliting Not Reportable 04/28/21 04:56 Plt Morphology Comment Not Reportable 04/28/21 04:56 RBC Morphology Normal 04/28/21 04:56 Dimorphic RBCs Not Reportable 04/28/21 04:56 Polychromasia Not Reportable 04/28/21 04:56 Hypochromasia Not Reportable 04/28/21 04:56 Poikilocytosis Not Reportable 04/28/21 04:56 Anisocytosis Not Reportable 04/28/21 04:56 Microcytosis Not Reportable 04/28/21 04:56 Macrocytosis Not Reportable 04/28/21 04:56 Spherocytes Not Reportable 04/28/21 04:56 Pappenheimer Bodies Not Reportable 04/28/21 04:56 Sickle Cells Not Reportable 04/28/21 04:56 Target Cells Not Reportable 04/28/21 04:56 Tear Drop Cells Not Reportable 04/28/21 04:56 Ovalocytes Not Reportable 04/28/21 04:56 Helmet Cells Not Reportable 04/28/21 04:56 [place] Bodies Not Reportable 04/28/21 04:56 [place] Rings Not Reportable 04/28/21 04:56 Weld Cells Not Reportable 04/28/21 04:56 Bite Cells Not Reportable 04/28/21 04:56 Crenated Cell Not Reportable 04/28/21 04:56 Elliptocytes Not Reportable 04/28/21 04:56 Acanthocytes (Spur) Not Reportable 04/28/21 04:56 Rouleaux Not Reportable 04/28/21 04:56 Hemoglobin C Crystals Not Reportable 04/28/21 04:56 Schistocytes Not Reportable 04/28/21 04:56 Malaria parasites Not Reportable 04/28/21 04:56 Yusuf Bodies Not Reportable 04/28/21 04:56 Hem Pathologist Commnt No 04/28/21 04:56 Sodium 136 mmol/L (137-145) L 04/29/21 04:05 Potassium 3.5 mmol/L (3.6-5.0) L 04/29/21 04:05 Chloride 99.2 mmol/L (98-107) 04/29/21 04:05 Carbon Dioxide 24 mmol/L (22-30) 04/29/21 04:05 Anion Gap 16 mmol/L 04/29/21 04:05 BUN 14 mg/dL (7-17) 04/29/21 04:05 Creatinine 0.5 mg/dL (0.6-1.2) L 04/29/21 04:05 Estimated GFR > 60 ml/min 04/29/21 04:05 BUN/Creatinine Ratio 28 % 04/29/21 04:05 Glucose 110 mg/dL (65-100) H 04/29/21 04:05 Calcium 8.8 mg/dL (8.4-10.2) 04/29/21 04:05 Phosphorus 2.80 mg/dL (2.5-4.5) 04/27/21 16:48 Magnesium 1.80 mg/dL (1.7-2.3) 04/27/21 19:35 Total Bilirubin 1.70 mg/dL (0.1-1.2) H 04/27/21 16:48 Direct Bilirubin 0.4 mg/dL (0-0.2) H 04/27/21 16:48 Indirect Bilirubin 1.3 mg/dL 04/27/21 16:48 AST 76 units/L (5-40) H 04/27/21 16:48 ALT 32 units/L (7-56) 04/27/21 16:48 Alkaline Phosphatase 98 units/L (35-129) 04/27/21 16:48 Total Protein 8.4 g/dL (6.3-8.2) H 04/27/21 16:48 Albumin 5.4 g/dL (3.9-5) H 04/27/21 16:48 Albumin/Globulin Ratio 1.8 % 04/27/21 16:48 HCG, Qual Negative (Negative) 04/27/21 16:55 Urine Color [place] (Yellow) 04/28/21 Unknown Urine Turbidity Cloudy (Clear) 04/28/21 Unknown Urine pH 6.0 (5.0-7.0) 04/28/21 Unknown Ur Specific [place] 1.025 (1.003-1.030) 04/28/21 Unknown Urine Protein 100 mg/dl mg/dL (Negative) 04/28/21 Unknown Urine Glucose (UA) Neg mg/dL (Negative) 04/28/21 Unknown Urine Ketones 20 mg/dL (Negative) 04/28/21 Unknown Urine Blood Neg (Negative) 04/28/21 Unknown Urine Nitrite Neg (Negative) 04/28/21 Unknown Urine Bilirubin Neg (Negative) 04/28/21 Unknown Urine Urobilinogen 2.0 mg/dL (<2.0) 04/28/21 Unknown Ur Leukocyte Esterase Neg (Negative) 04/28/21 Unknown Urine WBC (Auto) 13.0 /HPF (0.0-6.0) H 04/28/21 Unknown Urine RBC (Auto) 1.0 /HPF (0.0-6.0) 04/28/21 Unknown U Epithel Cells (Auto) < 1.0 /HPF (0-13.0) 04/28/21 Unknown Urine Bacteria (Auto) 3+ /HPF (Negative) 04/28/21 Unknown Urine Mucus 3+ /HPF 04/28/21 Unknown Urine Opiates Screen Presumptive negative 04/28/21 Unknown Urine Methadone Screen Presumptive negative 04/28/21 Unknown Ur Barbiturates Screen Presumptive negative 04/28/21 Unknown Ur Phencyclidine Scrn Presumptive negative 04/28/21 Unknown Ur Amphetamines Screen Presumptive positive 04/28/21 Unknown U Benzodiazepines Scrn Presumptive negative 04/28/21 Unknown Urine Cocaine Screen Presumptive negative 04/28/21 Unknown U Marijuana (THC) Screen Presumptive positive 04/28/21 Unknown Drugs of Abuse Note Disclamer 04/28/21 Unknown Plasma/Serum Alcohol < 0.01 % (0-0.07) 04/27/21 16:55 Aleln/IV: Voiding Method Toilet Active Medications - Current Medications Current Medications: Generic Name Dose Route Start Last Admin Trade Name Freq PRN Reason Stop Dose Admin Acetaminophen 650 mg 04/27/21 23:48 Acetaminophen 325 Mg Tab PO Q4H PRN Pain MILD(1-3)/Fever >100.5/MISHRA Albuterol 2.5 mg 04/27/21 23:48 Albuterol 2.5 Mg/3 Ml Nebu IH Q4HRT PRN Shortness Of Breath Famotidine 20 mg 04/28/21 10:00 04/29/21 10:38 Famotidine 20 Mg/2 Ml Inj IV 20 mg BID MARÍA Administration Haloperidol Lactate 5 mg 04/27/21 23:48 04/28/21 00:43 Haloperidol Lactate 5 Mg/1 Ml Inj IV 5 mg Q1H PRN Administration Unrespon. to mult. doses BZD's Heparin Sodium (Porcine) 5,000 unit 04/28/21 10:00 04/29/21 10:38 Heparin 5,000 Unit/1 Ml Vial SUB-Q 5,000 unit Q12HR MARÍA Administration Hydromorphone HCl 0.5 mg 04/27/21 23:48 Hydromorphone 1 Mg/1 Ml Inj IV Q3H PRN Pain , Severe (7-10) Hydroxyzine Pamoate 25 mg 04/29/21 12:00 Hydroxyzine Pamoate 25 Mg Cap PO BID MARÍA Dextrose/Sodium Chloride 1,000 mls @ 100 mls/hr 04/27/21 23:45 04/29/21 03:48 D5/0.45ns IV 100 mls/hr DIRECT MARÍA Administration Ceftriaxone Sodium 2 gm in 100 mls @ 200 mls/hr 04/28/21 01:00 04/29/21 02:39 Rocephin/Ns 2 Gm/100 Ml IV 200 mls/hr Q24H MARÍA Administration Protocol Magnesium Sulfate 2 gm in 50 mls @ 25 mls/hr 04/29/21 10:00 04/29/21 10:38 Magnesium Sulfate 2gm/50ml IV 04/29/21 11:59 25 mls/hr ONCE ONE Administration Lorazepam 2 mg 04/27/21 19:34 04/27/21 20:31 Lorazepam 2 Mg/Ml Vial IV 2 mg Q1HR PRN Administration CIWA-Ar 8-15 Lorazepam 4 mg 04/27/21 19:34 04/27/21 22:52 Lorazepam 2 Mg/Ml Vial IV 4 mg Q1HR PRN Administration CIWA-Ar 16-25 Olanzapine 5 mg 04/28/21 13:00 04/29/21 10:38 Olanzapine 5 Mg Tab PO 5 mg QDAY MARÍA Administration Ondansetron HCl 4 mg 04/27/21 23:48 Ondansetron 4 Mg/2 Ml Inj IV Q8H PRN Nausea And Vomiting Oxycodone/Acetaminophen 1 tab 04/27/21 23:48 Oxycodone /Acetaminophen 5-325mg Tab PO Q6H PRN Pain, Moderate (4-6) Potassium Chloride 40 meq 04/29/21 10:00 04/29/21 10:38 Potassium Chloride Er 20 Meq Tab PO 04/29/21 16:01 40 meq Q6H MARÍA Administration Sertraline HCl 25 mg 04/28/21 13:00 04/29/21 10:38 Sertraline 25 Mg Tab PO 25 mg QDAY MARÍA Administration Thiamine HCl 100 mg 04/29/21 10:00 04/29/21 10:38 Thiamine 100 Mg Tab PO 100 mg QDAY MARÍA Administration Trazodone HCl 50 mg 04/28/21 22:00 04/28/21 22:42 Trazodone 50 Mg Tab PO 50 mg QHS MARÍA Administration
[2021-04-29] MEDS: hydrOXYzine PAMOATE 25 MG CAP PO SCH (13:41)
[2021-04-29] MEDS: LORazepam 2 MG/ML VIAL IV PRN ×2 (13:48→21:39)
[2021-04-29] MEDS: traZODone 50 MG TAB PO SCH (21:39)
[2021-04-30] MEDS: cefTRIAXone/NS 2 GM/100 ML 2 GM/100 ML BAG IV SCH (01:55)
[2021-04-30] MEDS: LORazepam 2 MG/ML VIAL IV PRN ×4 (02:01→08:45)
[2021-04-30] MEDS: hydrOXYzine PAMOATE 25 MG CAP PO SCH ×3 (05:05→21:24)
[2021-04-30 05:32] LABS: Hematocrit 40.6 % (30.3-42.9); Mean Corpuscular HGB Conc 35 % (30-34); Mean Corpuscular Volume 98 fl (79-97); Platelet Count 237 K/mm3 (140-440); Red Blood Count 4.14 M/mm3 (3.65-5.03); Red Cell Distribution Width 12.5 % (13.2-15.2)
[2021-04-30 05:45] LABS: Blood Urea Nitrogen 14 mg/dL (7-17); Calcium 9.8 mg/dL (8.4-10.2); Hemolysis Index 0
[2021-04-30 05:52] LABS: BUN/Creatinine Ratio 23
--- NOTE | 2021-04-30 10:55 | Progress Note ---
Subjective - Reason for Consult Consult date: 04/30/21 Reason for consult: Detox, SI - Chief Complaint Chief complaint: The patient was seen today. She appears anxious. She is tearful. She is confused. Jayla did not know where she was, or the date. She references the [employer] as "Glenn." She thens says "nothing is every good when the government gets involved." The patient starts crying at this point. The patient appears to be in withdrawals. The nurse says the patient has had high doses of lorazepam for withdrawals. The patient says she lost a ring and can't find it. The sitters at bedside says the patient tried to climb over her to get through the door. She seemed indecisive about being suicidal. She initially stares and says yes, she then shakes her head "no." The patient denies hallucinations. REVIEW OF SYSTEMS Constitutional: Negative for weight loss ENT: Negative for stridor Respiratory: Negative for cough or hemoptysis All other systems reviewed and are negative MENTAL STATUS EXAMINATION General Appearance and Behavior: Age appropriate, good hygiene, wearing appropriate clothes. Cooperation: Cooperative Psychomotor Behavior: Psychomotor normal Mood: depressed Affect and affective range: congruent with stated mood Thought Process: Goal directed Thought Content: hallucinations Speech: Normal volume, Regular rate and rhythm, Suicidal Ideation: denies at present, but comes and goes Homicidal Ideation: Denies Hallucinations: Auditory Delusions: None Impulse Control: Questionable Insight and Judgment: Limited Memory: Limited Attention: Distractible Orientation: alert and oriented Assessment and Plan (1)Polysubstance abuse with withdrawals (2) MDD Treatment Plan 1013 Agree with CIWA Increase Olanzapine 7.5mg po daily Start Depakote DR 125mg po BID Zoloft 25mg po daily Increase Vistaril 50mg po BID SItter: per primary Medical: per primary Disposition: Recommend acute psychiatric inpatient treatment. The patient is improving, disposition might change once medically clear. Case staffed with Dr. Salinas Mental Status Exam - Vital signs Last Vital Signs Temp 98.9 F 04/30/21 05:00 Pulse 129 H 04/30/21 07:45 Resp 18 04/30/21 07:45 BP 117/70 04/30/21 07:45 Pulse Ox 100 04/30/21 08:34
[2021-04-30] MEDS ORDERED: ONDANSETRON 4 MG/2 ML INJ IV PRN (11:11)
--- NOTE | 2021-04-30 11:29 | Progress Note ---
Assessment and Plan Assessment and plan: (1) Alcohol withdrawal Status: Acute Qualifiers: Complication of substance-induced condition: with delirium Qualified Code(s): F10.231 - Alcohol dependence with withdrawal delirium Plan to address problem: Admit the patient to the medical floor. N.p.o. IV fluid D5 half-normal saline at the rate of 100 cc/h. We counseled the patient regarding quit drinking. We put the patient on CIWA protocol. We also put the patient thiamine folic acid and banana bag IV daily. We will consult psych for evaluation. (2) Delirium tremens Status: Acute Plan to address problem: N.p.o. IV fluid D5 half-normal saline at the rate of 100 cc/h. We counseled the patient regarding quit drinking. We put the patient on CIWA protocol. We also put the patient thiamine folic acid and banana bag IV daily. We will consult psych for evaluation. (3) Polysubstance abuse Status: Acute Plan to address problem: We counseled the patient regarding quit taking cocaine alcohol and methamphetamine. Reconsult psych for evaluation (4) Swelling of upper lip Status: Acute Plan to address problem: Patient has swelling of the upper lips due to some allergic reaction. We put the patient some Benadryl 25 mg IV every 8 hours as needed and Solu-Medrol 40 mg IV every 8 hours. We will monitor the patient closely (5) DVT prophylaxis Status: Acute Plan to address problem: Heparin 5000 units subcu every 8 hours for DVT prophylaxis. Pepcid 20 mg IV twice daily for GI prophylaxis. Patient is a full code UTI 04/28/21 patient with Polysubstace abuse with cocaine, methamphetamine, alcohol abuse. She has delirium tremens with hallucinations. She needs inpatient management. patient has swollen upper lip, occured here. Its unclear if reaction to medication. Nurse states it started after "Banana bag" 04/29/21 patient with Polysubstace abuse with cocaine, methamphetamine, alcohol abuse. She has delirium tremens with hallucinations. She needs inpatient management. Patient has swollen upper lip, occured here. Its unclear if reaction to medication. Nurse states it started after "Banana bag" Swelling much improved, only minimal swelling now after steroids, pepcid, Benadryl On 1013 hold 04/30/21 patient with Polysubstace abuse with cocaine, methamphetamine, alcohol abuse. She has delirium tremens with hallucinations. Patient has swollen upper lip, occured here. Its unclear if reaction to medication. Nurse states it started after "Banana bag" Swelling much improved, only minimal swelling now after steroids, pepcid, Benadryl More agitated today from delirium tremens. Continue CIWA protocol. Haldol prn On 1013 hold History Interval history: Altered mental status Tremors Substance abuse Upper lip swelling almost resolved More agitated today Hospitalist Physical - Constitutional Vitals: Temp Pulse Resp BP Pulse Ox 98.9 F 129 H 18 117/70 100 04/30/21 05:00 04/30/21 07:45 04/30/21 07:45 04/30/21 07:45 04/30/21 08:34 General appearance: Present: mild distress, well-nourished Results - Labs CBC & Chem 7: 04/30/21 04:11 04/30/21 04:11 Labs: Laboratory Last Values WBC 8.7 K/mm3 (4.5-11.0) 04/30/21 04:11 RBC 4.14 M/mm3 (3.65-5.03) 04/30/21 04:11 Hgb 14.0 gm/dl (10.1-14.3) 04/30/21 04:11 Hct 40.6 % (30.3-42.9) 04/30/21 04:11 MCV 98 fl (79-97) H 04/30/21 04:11 MCH 34 pg (28-32) H 04/30/21 04:11 MCHC 35 % (30-34) H 04/30/21 04:11 RDW 12.5 % (13.2-15.2) L 04/30/21 04:11 Plt Count 237 K/mm3 (140-440) 04/30/21 04:11 Lymph % (Auto) 5.3 % (13.4-35.0) L 04/27/21 16:55 Power % (Auto) 7.8 % (0.0-7.3) H 04/27/21 16:55 Eos % (Auto) 0.0 % (0.0-4.3) 04/27/21 16:55 Baso % (Auto) 0.4 % (0.0-1.8) 04/27/21 16:55 Lymph # (Auto) 0.8 K/mm3 (1.2-5.4) L 04/27/21 16:55 Power # (Auto) 1.2 K/mm3 (0.0-0.8) H 04/27/21 16:55 Eos # (Auto) 0.0 K/mm3 (0.0-0.4) 04/27/21 16:55 Baso # (Auto) 0.1 K/mm3 (0.0-0.1) 04/27/21 16:55 Add Manual Diff Complete 04/28/21 04:56 Total Counted 100 04/28/21 04:56 Seg Neutrophils % Electrical Equipment Assembler 04/28/21 04:56 Seg Neuts % (Manual) 88.0 % (40.0-70.0) H 04/28/21 04:56 Band Neutrophils % 3.0 % 04/28/21 04:56 Lymphocytes % (Manual) 4.0 % (13.4-35.0) L 04/28/21 04:56 Monocytes % (Manual) 5.0 % (0.0-7.3) 04/28/21 04:56 Nucleated RBC % Not Reportable 04/28/21 04:56 Seg Neutrophils # 13.0 K/mm3 (1.8-7.7) H 04/27/21 16:55 Seg Neutrophils # Man 11.7 K/mm3 (1.8-7.7) H 04/28/21 04:56 Band Neutrophils # 0.4 K/mm3 04/28/21 04:56 Lymphocytes # (Manual) 0.5 K/mm3 (1.2-5.4) L 04/28/21 04:56 Abs React Lymphs (Man) 0.0 K/mm3 04/28/21 04:56 Monocytes # (Manual) 0.7 K/mm3 (0.0-0.8) 04/28/21 04:56 Eosinophils # (Manual) 0.0 K/mm3 (0.0-0.4) 04/28/21 04:56 Basophils # (Manual) 0.0 K/mm3 (0.0-0.1) 04/28/21 04:56 Metamyelocytes # 0.0 K/mm3 04/28/21 04:56 Myelocytes # 0.0 K/mm3 04/28/21 04:56 Promyelocytes # 0.0 K/mm3 04/28/21 04:56 Blast Cells # 0.0 K/mm3 04/28/21 04:56 WBC Morphology Not Reportable 04/28/21 04:56 Hypersegmented Neuts Not Reportable 04/28/21 04:56 Hyposegmented Neuts Not Reportable 04/28/21 04:56 Hypogranular Neuts Not Reportable 04/28/21 04:56 Smudge Cells Not Reportable 04/28/21 04:56 Toxic Granulation Not Reportable 04/28/21 04:56 Toxic Vacuolation Not Reportable 04/28/21 04:56 Dohle Bodies Not Reportable 04/28/21 04:56 Pelger-Huet Anomaly Not Reportable 04/28/21 04:56 Jerson Rods Not Reportable 04/28/21 04:56 Platelet Estimate Consistent w auto 04/28/21 04:56 Clumped Platelets Not Reportable 04/28/21 04:56 Plt Clumps, EDTA Not Reportable 04/28/21 04:56 Large Platelets Not Reportable 04/28/21 04:56 Giant Platelets Not Reportable 04/28/21 04:56 Platelet Satelliting Not Reportable 04/28/21 04:56 Plt Morphology Comment Not Reportable 04/28/21 04:56 RBC Morphology Normal 04/28/21 04:56 Dimorphic RBCs Not Reportable 04/28/21 04:56 Polychromasia Not Reportable 04/28/21 04:56 Hypochromasia Not Reportable 04/28/21 04:56 Poikilocytosis Not Reportable 04/28/21 04:56 Anisocytosis Not Reportable 04/28/21 04:56 Microcytosis Not Reportable 04/28/21 04:56 Macrocytosis Not Reportable 04/28/21 04:56 Spherocytes Not Reportable 04/28/21 04:56 Pappenheimer Bodies Not Reportable 04/28/21 04:56 Sickle Cells Not Reportable 04/28/21 04:56 Target Cells Not Reportable 04/28/21 04:56 Tear Drop Cells Not Reportable 04/28/21 04:56 Ovalocytes Not Reportable 04/28/21 04:56 Helmet Cells Not Reportable 04/28/21 04:56 Malik-Dixon Bodies Not Reportable 04/28/21 04:56 [place] Rings Not Reportable 04/28/21 04:56 Patricia Cells Not Reportable 04/28/21 04:56 Bite Cells Not Reportable 04/28/21 04:56 Crenated Cell Not Reportable 04/28/21 04:56 Elliptocytes Not Reportable 04/28/21 04:56 Acanthocytes (Spur) Not Reportable 04/28/21 04:56 Rouleaux Not Reportable 04/28/21 04:56 Hemoglobin C Crystals Not Reportable 04/28/21 04:56 Schistocytes Not Reportable 04/28/21 04:56 Malaria parasites Not Reportable 04/28/21 04:56 Yusuf Bodies Not Reportable 04/28/21 04:56 Hem Pathologist Commnt No 04/28/21 04:56 Sodium 136 mmol/L (137-145) L 04/30/21 04:11 Potassium 3.8 mmol/L (3.6-5.0) 04/30/21 04:11 Chloride 99.0 mmol/L (98-107) 04/30/21 04:11 Carbon Dioxide 24 mmol/L (22-30) 04/30/21 04:11 Anion Gap 17 mmol/L 04/30/21 04:11 BUN 14 mg/dL (7-17) 04/30/21 04:11 Creatinine 0.6 mg/dL (0.6-1.2) 04/30/21 04:11 Estimated GFR > 60 ml/min 04/30/21 04:11 BUN/Creatinine Ratio 23 % 04/30/21 04:11 Glucose 101 mg/dL (65-100) H 04/30/21 04:11 Calcium 9.8 mg/dL (8.4-10.2) 04/30/21 04:11 Phosphorus 2.80 mg/dL (2.5-4.5) 04/27/21 16:48 Magnesium 2.10 mg/dL (1.7-2.3) 04/30/21 04:11 Total Bilirubin 1.70 mg/dL (0.1-1.2) H 04/27/21 16:48 Direct Bilirubin 0.4 mg/dL (0-0.2) H 04/27/21 16:48 Indirect Bilirubin 1.3 mg/dL 04/27/21 16:48 AST 76 units/L (5-40) H 04/27/21 16:48 ALT 32 units/L (7-56) 04/27/21 16:48 Alkaline Phosphatase 98 units/L (35-129) 04/27/21 16:48 Total Protein 8.4 g/dL (6.3-8.2) H 04/27/21 16:48 Albumin 5.4 g/dL (3.9-5) H 04/27/21 16:48 Albumin/Globulin Ratio 1.8 % 04/27/21 16:48 HCG, Qual Negative (Negative) 04/27/21 16:55 Urine Color [place] (Yellow) 04/28/21 Unknown Urine Turbidity Cloudy (Clear) 04/28/21 Unknown Urine pH 6.0 (5.0-7.0) 04/28/21 Unknown Ur Specific Sherman 1.025 (1.003-1.030) 04/28/21 Unknown Urine Protein 100 mg/dl mg/dL (Negative) 04/28/21 Unknown Urine Glucose (UA) Neg mg/dL (Negative) 04/28/21 Unknown Urine Ketones 20 mg/dL (Negative) 04/28/21 Unknown Urine Blood Neg (Negative) 04/28/21 Unknown Urine Nitrite Neg (Negative) 04/28/21 Unknown Urine Bilirubin Neg (Negative) 04/28/21 Unknown Urine Urobilinogen 2.0 mg/dL (<2.0) 04/28/21 Unknown Ur Leukocyte Esterase Neg (Negative) 04/28/21 Unknown Urine WBC (Auto) 13.0 /HPF (0.0-6.0) H 04/28/21 Unknown Urine RBC (Auto) 1.0 /HPF (0.0-6.0) 04/28/21 Unknown U Epithel Cells (Auto) < 1.0 /HPF (0-13.0) 04/28/21 Unknown Urine Bacteria (Auto) 3+ /HPF (Negative) 04/28/21 Unknown Urine Mucus 3+ /HPF 04/28/21 Unknown Urine Opiates Screen Presumptive negative 04/28/21 Unknown Urine Methadone Screen Presumptive negative 04/28/21 Unknown Ur Barbiturates Screen Presumptive negative 04/28/21 Unknown Ur Phencyclidine Scrn Presumptive negative 04/28/21 Unknown Ur Amphetamines Screen Presumptive positive 04/28/21 Unknown U Benzodiazepines Scrn Presumptive negative 04/28/21 Unknown Urine Cocaine Screen Presumptive negative 04/28/21 Unknown U Marijuana (THC) Screen Presumptive positive 04/28/21 Unknown Drugs of Abuse Note Disclamer 04/28/21 Unknown Plasma/Serum Alcohol < 0.01 % (0-0.07) 04/27/21 16:55 Microbiology: Microbiology 04/28/21 Unknown Urine,Clean Catch Urine Culture - Preliminary Gram Negative Gianfranco Allen/IV: Voiding Method Toilet Active Medications - Current Medications Current Medications: Generic Name Dose Route Start Last Admin Trade Name Freq PRN Reason Stop Dose Admin Acetaminophen 650 mg 04/27/21 23:48 Acetaminophen 325 Mg Tab PO Q4H PRN Pain MILD(1-3)/Fever >100.5/MISHRA Albuterol 2.5 mg 04/27/21 23:48 Albuterol 2.5 Mg/3 Ml Nebu IH Q4HRT PRN Shortness Of Breath Divalproex Sodium 125 mg 04/30/21 12:[address] 125 Mg Tab PO BID MARÍA Famotidine 20 mg 04/28/21 10:00 04/29/21 21:38 Famotidine 20 Mg/2 Ml Inj IV 20 mg BID MARÍA Administration Haloperidol Lactate 5 mg 04/27/21 23:48 04/28/21 00:43 Haloperidol Lactate 5 Mg/1 Ml Inj IV 5 mg Q1H PRN Administration Unrespon. to mult. doses BZD's Heparin Sodium (Porcine) 5,000 unit 04/28/21 10:00 04/29/21 21:38 Heparin 5,000 Unit/1 Ml Vial SUB-Q 5,000 unit Q12HR MARÍA Administration Hydromorphone HCl 0.5 mg 04/27/21 23:48 04/30/21 05:03 Hydromorphone 1 Mg/1 Ml Inj IV 0.5 mg Q3H PRN Administration Pain , Severe (7-10) Hydroxyzine Pamoate 50 mg 04/30/21 11:00 Hydroxyzine Pamoate 50 Mg Cap PO BID MARÍA Dextrose/Sodium Chloride 1,000 mls @ 100 mls/hr 04/27/21 23:45 04/29/21 03:48 D5/0.45ns IV 100 mls/hr DIRECT MARÍA Administration Ceftriaxone Sodium 2 gm in 100 mls @ 200 mls/hr 04/28/21 01:00 04/30/21 01:55 Rocephin/Ns 2 Gm/100 Ml IV 200 mls/hr Q24H MARÍA Administration Protocol Lorazepam 2 mg 04/27/21 19:34 04/30/21 05:03 Lorazepam 2 Mg/Ml Vial IV 2 mg Q1HR PRN Administration [facility] 8-15 Lorazepam 4 mg 04/27/21 19:34 04/30/21 08:45 Lorazepam 2 Mg/Ml Vial IV 4 mg Q1HR PRN Administration [facility] 16-25 Olanzapine 7.5 mg 04/30/21 12:00 Olanzapine 7.5 Mg Tab PO QDAY MARÍA Ondansetron HCl 4 mg 04/30/21 11:11 Ondansetron 4 Mg/2 Ml Inj IV Q8H PRN Nausea And Vomiting Oxycodone/Acetaminophen 1 tab 04/27/21 23:48 Oxycodone /Acetaminophen 5-325mg Tab PO Q6H PRN Pain, Moderate (4-6) Sertraline HCl 25 mg 04/28/21 13:00 04/29/21 10:38 Sertraline 25 Mg Tab PO 25 mg QDAY MARÍA Administration Thiamine HCl 100 mg 04/29/21 10:00 04/29/21 10:38 Thiamine 100 Mg Tab PO 100 mg QDAY MARÍA Administration Trazodone HCl 50 mg 04/28/21 22:00 04/29/21 21:39 Trazodone 50 Mg Tab PO 50 mg QHS MARÍA Administration
--- NOTE | 2021-04-30 11:32 | Event Note ---
Date: 04/30/21 Spoke with the patient's mom, Diana at [phone], and gave her updates about the patient's progress and plan. Mom says the patient has never attempted suicide before but has talked about it. Mom says she was on Sertraline a couple of years ago for depression. She says Taniya stopped taking it because she didn't like the way it made her feel.
[2021-04-30] MEDS: HEPARIN 5,000 UNIT/1 ML VIAL SUB-Q SCH ×2 (12:15→21:23)
[2021-04-30] MEDS: HALOPERIDOL LACTATE 5 MG/1 ML INJ IV PRN ×2 (12:41→21:27)
[2021-04-30] MEDS: FAMOTIDINE 20 MG/2 ML INJ IV SCH ×2 (12:41→21:23)
[2021-04-30] MEDS: THIAMINE 100 MG TAB PO SCH (12:41)
[2021-04-30] MEDS: SERTRALINE 25 MG TAB PO SCH (12:42)
[2021-04-30] MEDS: DIVALPROEX DR 125 MG TAB PO SCH ×2 (13:35→21:24)
[2021-04-30] MEDS: traZODone 50 MG TAB PO SCH (21:32)
[2021-05-01] MEDS: cefTRIAXone/NS 2 GM/100 ML 2 GM/100 ML BAG IV SCH (00:21)
[2021-05-01] MEDS: SERTRALINE 25 MG TAB PO SCH (10:32)
[2021-05-01] MEDS: DIVALPROEX DR 125 MG TAB PO SCH ×2 (10:32→21:49)
[2021-05-01] MEDS: FAMOTIDINE 20 MG/2 ML INJ IV SCH ×2 (10:33→21:48)
[2021-05-01] MEDS: THIAMINE 100 MG TAB PO SCH (10:33)
[2021-05-01] MEDS: HEPARIN 5,000 UNIT/1 ML VIAL SUB-Q SCH ×2 (10:33→21:48)
--- NOTE | 2021-05-01 11:11 | Progress Note ---
Subjective - Reason for Consult Consult date: 05/01/21 Reason for consult: detox - Chief Complaint Chief complaint: Per Nurse Note: States the patient was agitated, trying to get out of window, and having auditory hallucinations. The patient was seen today. Despite nursing staff report, she is much more calm today than yesterday. She is lying down awake, but appears drowsy. The patient says she is a little tired. She says she "feels good" when I asked how she was feeling. Taniya says she feels better about the future. She says she is moving out of her apartment to another place. She says she's "hoping to stop the drugs and alcohol." She denies SI/HI. She also denies any nervousness or fear of endangerment about her present or future. The patient denies hallucinations of any kind. I will monitor the patient until she's medically clear and then redetermine disposition. REVIEW OF SYSTEMS Constitutional: Negative for weight loss ENT: Negative for stridor Respiratory: Negative for cough or hemoptysis All other systems reviewed and are negative MENTAL STATUS EXAMINATION General Appearance and Behavior: Age appropriate, good hygiene, wearing appropriate clothes. Cooperation: Cooperative Psychomotor Behavior: Psychomotor normal Mood: good Affect and affective range: congruent with stated mood Thought Process: Goal directed Thought Content: optimism Speech: Normal volume, Regular rate and rhythm, Suicidal Ideation: denies Homicidal Ideation: Denies Hallucinations: Hallucinations per nursing staff Delusions: None Impulse Control: limited Insight and Judgment: Limited Memory: Limited Attention: attentive Orientation: alert and oriented Assessment and Plan (1)Polysubstance abuse with withdrawals (2) MDD Treatment Plan Agree with OPAL Olanzapine 7.5mg po daily Start Depakote DR 125mg po BID Zoloft 25mg po daily Increase Vistaril 50mg po BID SItter: per primary Medical: per primary Disposition: Recommend acute psychiatric inpatient treatment. The patient is improving, disposition might change once medically clear. Case staffed with Dr. Salinas Mental Status Exam - Vital signs Last Vital Signs Temp 97.1 F L 05/01/21 08:44 Pulse 85 05/01/21 08:44 Resp 18 05/01/21 08:44 BP 82/58 05/01/21 08:44 Pulse Ox 100 05/01/21 08:44
--- NOTE | 2021-05-01 13:27 | Progress Note ---
Assessment and Plan Assessment and plan: (1) Alcohol withdrawal Status: Acute Qualifiers: Complication of substance-induced condition: with delirium Qualified Code(s): F10.231 - Alcohol dependence with withdrawal delirium Plan to address problem: Admit the patient to the medical floor. N.p.o. IV fluid D5 half-normal saline at the rate of 100 cc/h. We counseled the patient regarding quit drinking. We put the patient on CIWA protocol. We also put the patient thiamine folic acid and banana bag IV daily. We will consult psych for evaluation. (2) Delirium tremens Status: Acute Plan to address problem: N.p.o. IV fluid D5 half-normal saline at the rate of 100 cc/h. We counseled the patient regarding quit drinking. We put the patient on CIWA protocol. We also put the patient thiamine folic acid and banana bag IV daily. We will consult psych for evaluation. (3) Polysubstance abuse Status: Acute Plan to address problem: We counseled the patient regarding quit taking cocaine alcohol and methamphetamine. Reconsult psych for evaluation (4) Swelling of upper lip Status: Acute Plan to address problem: Patient has swelling of the upper lips due to some allergic reaction. We put the patient some Benadryl 25 mg IV every 8 hours as needed and Solu-Medrol 40 mg IV every 8 hours. We will monitor the patient closely (5) DVT prophylaxis Status: Acute Plan to address problem: Heparin 5000 units subcu every 8 hours for DVT prophylaxis. Pepcid 20 mg IV twice daily for GI prophylaxis. Patient is a full code UTI Angioedema 04/28/21 patient with Polysubstace abuse with cocaine, methamphetamine, alcohol abuse. She has delirium tremens with hallucinations. She needs inpatient management. patient has swollen upper lip, occured here. Its unclear if reaction to medication. Nurse states it started after "Banana bag" 04/29/21 patient with Polysubstace abuse with cocaine, methamphetamine, alcohol abuse. She has delirium tremens with hallucinations. She needs inpatient management. Patient has swollen upper lip, occured here. Its unclear if reaction to medication. Nurse states it started after "Banana bag" Swelling much improved, only minimal swelling now after steroids, pepcid, Benadryl On 1013 hold 04/30/21 patient with Polysubstace abuse with cocaine, methamphetamine, alcohol abuse. She has delirium tremens with hallucinations. Patient has swollen upper lip, occured here. Its unclear if reaction to medica tion. Nurse states it started after "Banana bag" Swelling much improved, only minimal swelling now after steroids, pepcid, Benadryl More agitated today from delirium tremens. Continue CIWA protocol. Haldol prn On 1013 hold 05/01/21 Patient with Polysubstace abuse with cocaine, methamphetamine, alcohol abuse. She has delirium tremens with hallucinations. Patient has angioedema:swollen upper lip, occurred here. Its unclear if reaction to medication. Nurse states it started after "Banana bag" Swelling much improved, only minimal swelling now after steroids, pepcid, Benadryl Was agitated yesterday from delirium tremens, but she is calm today. No tremors currently. Continue CIWA protocol. Haldol prn On 1013 hold. Psychiatry following She is medically stable to go to inpatient Psych History Interval history: Altered mental status, improved No Tremors currently Substance abuse Upper lip swelling almost resolved calm Hospitalist Physical - Physical exam Narrative exam: Gen:Not in acute distress, lying in bed HEENT: Upper lip minimal swelling, Neck:supple, no JVD Lungs: clear to auscultation ,no wheeze Heart:S1 and S2 reg, no murmurs, rubs or gallop Abd:Soft, non tender, non distended, normal bowel sounds Ext:No edema. no clubbing, no cyanosis Neuro:Awake, alert, oriented X 3, moves all ext - Constitutional Vitals: Temp Pulse Resp BP Pulse Ox 98.1 F 70 18 84/44 99 05/01/21 11:44 05/01/21 11:44 05/01/21 11:44 05/01/21 11:44 05/01/21 11:44 General appearance: Present: well-nourished Results - Labs CBC & Chem 7: 04/30/21 04:11 04/30/21 04:11 Labs: Laboratory Last Values WBC 8.7 K/mm3 (4.5-11.0) 04/30/21 04:11 RBC 4.14 M/mm3 (3.65-5.03) 04/30/21 04:11 Hgb 14.0 gm/dl (10.1-14.3) 04/30/21 04:11 Hct 40.6 % (30.3-42.9) 04/30/21 04:11 MCV 98 fl (79-97) H 04/30/21 04:11 MCH 34 pg (28-32) H 04/30/21 04:11 MCHC 35 % (30-34) H 04/30/21 04:11 RDW 12.5 % (13.2-15.2) L 04/30/21 04:11 Plt Count 237 K/mm3 (140-440) 04/30/21 04:11 Lymph % (Auto) 5.3 % (13.4-35.0) L 04/27/21 16:55 [place] % (Auto) 7.8 % (0.0-7.3) H 04/27/21 16:55 Eos % (Auto) 0.0 % (0.0-4.3) 04/27/21 16:55 Baso % (Auto) 0.4 % (0.0-1.8) 04/27/21 16:55 Lymph # (Auto) 0.8 K/mm3 (1.2-5.4) L 04/27/21 16:55 [place]dwell # (Auto) 1.2 K/mm3 (0.0-0.8) H 04/27/21 16:55 Eos # (Auto) 0.0 K/mm3 (0.0-0.4) 04/27/21 16:55 Baso # (Auto) 0.1 K/mm3 (0.0-0.1) 04/27/21 16:55 Add Manual Diff Complete 04/28/21 04:56 Total Counted 100 04/28/21 04:56 Seg Neutrophils % Agriculture Specialist 04/28/21 04:56 Seg Neuts % (Manual) 88.0 % (40.0-70.0) H 04/28/21 04:56 Band Neutrophils % 3.0 % 04/28/21 04:56 Lymphocytes % (Manual) 4.0 % (13.4-35.0) L 04/28/21 04:56 Monocytes % (Manual) 5.0 % (0.0-7.3) 04/28/21 04:56 Nucleated RBC % Not Reportable 04/28/21 04:56 Seg Neutrophils # 13.0 K/mm3 (1.8-7.7) H 04/27/21 16:55 Seg Neutrophils # Man 11.7 K/mm3 (1.8-7.7) H 04/28/21 04:56 Band Neutrophils # 0.4 K/mm3 04/28/21 04:56 Lymphocytes # (Manual) 0.5 K/mm3 (1.2-5.4) L 04/28/21 04:56 Abs React Lymphs (Man) 0.0 K/mm3 04/28/21 04:56 Monocytes # (Manual) 0.7 K/mm3 (0.0-0.8) 04/28/21 04:56 Eosinophils # (Manual) 0.0 K/mm3 (0.0-0.4) 04/28/21 04:56 Basophils # (Manual) 0.0 K/mm3 (0.0-0.1) 04/28/21 04:56 Metamyelocytes # 0.0 K/mm3 04/28/21 04:56 Myelocytes # 0.0 K/mm3 04/28/21 04:56 Promyelocytes # 0.0 K/mm3 04/28/21 04:56 Blast Cells # 0.0 K/mm3 04/28/21 04:56 WBC Morphology Not Reportable 04/28/21 04:56 Hypersegmented Neuts Not Reportable 04/28/21 04:56 Hyposegmented Neuts Not Reportable 04/28/21 04:56 Hypogranular Neuts Not Reportable 04/28/21 04:56 Smudge Cells Not Reportable 04/28/21 04:56 Toxic Granulation Not Reportable 04/28/21 04:56 Toxic Vacuolation Not Reportable 04/28/21 04:56 Dohle Bodies Not Reportable 04/28/21 04:56 Pelger-Huet Anomaly Not Reportable 04/28/21 04:56 Jerson Rods Not Reportable 04/28/21 04:56 Platelet Estimate Consistent w auto 04/28/21 04:56 Clumped Platelets Not Reportable 04/28/21 04:56 Plt Clumps, EDTA Not Reportable 04/28/21 04:56 Large Platelets Not Reportable 04/28/21 04:56 Giant Platelets Not Reportable 04/28/21 04:56 Platelet Satelliting Not Reportable 04/28/21 04:56 Plt Morphology Comment Not Reportable 04/28/21 04:56 RBC Morphology Normal 04/28/21 04:56 Dimorphic RBCs Not Reportable 04/28/21 04:56 Polychromasia Not Reportable 04/28/21 04:56 Hypochromasia Not Reportable 04/28/21 04:56 Poikilocytosis Not Reportable 04/28/21 04:56 Anisocytosis Not Reportable 04/28/21 04:56 Microcytosis Not Reportable 04/28/21 04:56 Macrocytosis Not Reportable 04/28/21 04:56 Spherocytes Not Reportable 04/28/21 04:56 Pappenheimer Bodies Not Reportable 04/28/21 04:56 Sickle Cells Not Reportable 04/28/21 04:56 Target Cells Not Reportable 04/28/21 04:56 Tear Drop Cells Not Reportable 04/28/21 04:56 Ovalocytes Not Reportable 04/28/21 04:56 Helmet Cells Not Reportable 04/28/21 04:56 Malik-Coy Bodies Not Reportable 04/28/21 04:56 [place]wood Rings Not Reportable 04/28/21 04:56 Lawrence Cells Not Reportable 04/28/21 04:56 Bite Cells Not Reportable 04/28/21 04:56 Crenated Cell Not Reportable 04/28/21 04:56 Elliptocytes Not Reportable 04/28/21 04:56 Acanthocytes (Spur) Not Reportable 04/28/21 04:56 Rouleaux Not Reportable 04/28/21 04:56 Hemoglobin C Crystals Not Reportable 04/28/21 04:56 Schistocytes Not Reportable 04/28/21 04:56 Malaria parasites Not Reportable 04/28/21 04:56 Yusuf Bodies Not Reportable 04/28/21 04:56 Hem Pathologist Commnt No 04/28/21 04:56 Sodium 136 mmol/L (137-145) L 04/30/21 04:11 Potassium 3.8 mmol/L (3.6-5.0) 04/30/21 04:11 Chloride 99.0 mmol/L (98-107) 04/30/21 04:11 Carbon Dioxide 24 mmol/L (22-30) 04/30/21 04:11 Anion Gap 17 mmol/L 04/30/21 04:11 BUN 14 mg/dL (7-17) 04/30/21 04:11 Creatinine 0.6 mg/dL (0.6-1.2) 04/30/21 04:11 Estimated GFR > 60 ml/min 04/30/21 04:11 BUN/Creatinine Ratio 23 % 04/30/21 04:11 Glucose 101 mg/dL (65-100) H 04/30/21 04:11 Calcium 9.8 mg/dL (8.4-10.2) 04/30/21 04:11 Phosphorus 2.80 mg/dL (2.5-4.5) 04/27/21 16:48 Magnesium 2.10 mg/dL (1.7-2.3) 04/30/21 04:11 Total Bilirubin 1.70 mg/dL (0.1-1.2) H 04/27/21 16:48 Direct Bilirubin 0.4 mg/dL (0-0.2) H 04/27/21 16:48 Indirect Bilirubin 1.3 mg/dL 04/27/21 16:48 AST 76 units/L (5-40) H 04/27/21 16:48 ALT 32 units/L (7-56) 04/27/21 16:48 Alkaline Phosphatase 98 units/L (35-129) 04/27/21 16:48 Total Protein 8.4 g/dL (6.3-8.2) H 04/27/21 16:48 Albumin 5.4 g/dL (3.9-5) H 04/27/21 16:48 Albumin/Globulin Ratio 1.8 % 04/27/21 16:48 HCG, Qual Negative (Negative) 04/27/21 16:55 Urine Color [place] (Yellow) 04/28/21 Unknown Urine Turbidity Cloudy (Clear) 04/28/21 Unknown Urine pH 6.0 (5.0-7.0) 04/28/21 Unknown Ur Specific [place] 1.025 (1.003-1.030) 04/28/21 Unknown Urine Protein 100 mg/dl mg/dL (Negative) 04/28/21 Unknown Urine Glucose (UA) Neg mg/dL (Negative) 04/28/21 Unknown Urine Ketones 20 mg/dL (Negative) 04/28/21 Unknown Urine Blood Neg (Negative) 04/28/21 Unknown Urine Nitrite Neg (Negative) 04/28/21 Unknown Urine Bilirubin Neg (Negative) 04/28/21 Unknown Urine Urobilinogen 2.0 mg/dL (<2.0) 04/28/21 Unknown Ur Leukocyte Esterase Neg (Negative) 04/28/21 Unknown Urine WBC (Auto) 13.0 /HPF (0.0-6.0) H 04/28/21 Unknown Urine RBC (Auto) 1.0 /HPF (0.0-6.0) 04/28/21 Unknown U Epithel Cells (Auto) < 1.0 /HPF (0-13.0) 04/28/21 Unknown Urine Bacteria (Auto) 3+ /HPF (Negative) 04/28/21 Unknown Urine Mucus 3+ /HPF 04/28/21 Unknown Urine Opiates Screen Presumptive negative 04/28/21 Unknown Urine Methadone Screen Presumptive negative 04/28/21 Unknown Ur Barbiturates Screen Presumptive negative 04/28/21 Unknown Ur Phencyclidine Scrn Presumptive negative 04/28/21 Unknown Ur Amphetamines Screen Presumptive positive 04/28/21 Unknown U Benzodiazepines Scrn Presumptive negative 04/28/21 Unknown Urine Cocaine Screen Presumptive negative 04/28/21 Unknown U Marijuana (THC) Screen Presumptive positive 04/28/21 Unknown Drugs of Abuse Note Disclamer 04/28/21 Unknown Plasma/Serum Alcohol < 0.01 % (0-0.07) 04/27/21 16:55 Microbiology: Microbiology 04/28/21 Unknown Urine,Clean Catch Urine Culture - Final Escherichia Coli Allen/IV: Voiding Method Toilet Active Medications - Current Medications Current Medications: Generic Name Dose Route Start Last Admin Trade Name Freq PRN Reason Stop Dose Admin Acetaminophen 650 mg 04/27/21 23:48 Acetaminophen 325 Mg Tab PO Q4H PRN Pain MILD(1-3)/Fever >100.5/MISHRA Albuterol 2.5 mg 04/27/21 23:48 Albuterol 2.5 Mg/3 Ml Nebu IH Q4HRT PRN Shortness Of Breath Divalproex Sodium 125 mg 04/30/21 12:00 05/01/21 10:[address] 125 Mg Tab PO 125 mg BID MARÍA Administration Famotidine 20 mg 04/28/21 10:00 05/01/21 10:33 Famotidine 20 Mg/2 Ml Inj IV 20 mg BID MARÍA Administration Haloperidol Lactate 5 mg 04/27/21 23:48 04/30/21 21:27 Haloperidol Lactate 5 Mg/1 Ml Inj IV 5 mg Q1H PRN Administration Unrespon. to mult. doses BZD's Heparin Sodium (Porcine) 5,000 unit 04/28/21 10:00 05/01/21 10:33 Heparin 5,000 Unit/1 Ml Vial SUB-Q 5,000 unit Q12HR MARÍA Administration Hydromorphone HCl 0.5 mg 04/27/21 23:48 04/30/21 05:03 Hydromorphone 1 Mg/1 Ml Inj IV 0.5 mg Q3H PRN Administration Pain , Severe (7-10) Hydroxyzine Pamoate 50 mg 04/30/21 11:00 05/01/21 10:31 Hydroxyzine Pamoate 50 Mg Cap PO 50 mg BID MARÍA Administration Dextrose/Sodium Chloride 1,000 mls @ 100 mls/hr 04/27/21 23:45 04/29/21 03:48 D5/0.45ns IV 100 mls/hr DIRECT MARÍA Administration Ceftriaxone Sodium 2 gm in 100 mls @ 200 mls/hr 04/28/21 01:00 05/01/21 00:21 Rocephin/Ns 2 Gm/100 Ml IV 05/04/21 01:29 200 mls/hr Q24H MARÍA Administration Protocol Lorazepam 2 mg 04/27/21 19:34 04/30/21 05:03 Lorazepam 2 Mg/Ml Vial IV 2 mg Q1HR [facility]N [facility] 4 mg 04/27/21 19:34 04/30/21 08:45 Lorazepam 2 Mg/Ml Vial IV 4 mg Q1HR PRN Administration [facility] 16-25 Olanzapine 7.5 mg 04/30/21 12:00 05/01/21 10:32 Olanzapine 7.5 Mg Tab PO 7.5 mg QDAY MARÍA Administration Ondansetron HCl 4 mg 04/30/21 11:11 Ondansetron 4 Mg/2 Ml Inj IV Q8H PRN Nausea And Vomiting Oxycodone/Acetaminophen 1 tab 04/27/21 23:48 Oxycodone /Acetaminophen 5-325mg Tab PO Q6H PRN Pain, Moderate (4-6) Sertraline HCl 25 mg 04/28/21 13:00 05/01/21 10:32 Sertraline 25 Mg Tab PO 25 mg QDAY MARÍA Administration Thiamine HCl 100 mg 04/29/21 10:00 05/01/21 10:33 Thiamine 100 Mg Tab PO 100 mg QDAY MARÍA Administration Trazodone HCl 50 mg 04/28/21 22:00 04/30/21 21:32 Trazodone 50 Mg Tab PO 50 mg QHS MARÍA Administration
--- NOTE | 2021-05-01 13:27 | Event Note ---
Date: 05/01/21 Patient medically cleared to transfer to inpatient psych.
[2021-05-01] MEDS: D5W/0.45% NACL 1,000 ML IV SCH (19:51)
[2021-05-01] MEDS: traZODone 50 MG TAB PO SCH (21:49)
[2021-05-02] MEDS: cefTRIAXone/NS 2 GM/100 ML 2 GM/100 ML BAG IV SCH (02:17)
[2021-05-02] MEDS: D5W/0.45% NACL 1,000 ML IV SCH (02:22)
--- NOTE | 2021-05-02 10:11 | Progress Note ---
Subjective - Reason for Consult Consult date: 05/02/21 Reason for consult: Detox, SI - Chief Complaint Chief complaint: The patient was seen today. She is sitting up in bed and watching t.v. She is cooperative. She is conversational. She compliments on my outfit. She appears a little jittery. The patient says she had a good night and slept well. She says she feels "shaky, anxious and nervous." She says "physically and mentally I feel heavy." When asking the patient to elaborate on how she felt, she says that everything seems like it takes extra effort and work. She says "like going to bathroom I feel like I have to drag myself." The patient says her withdrawals have been pretty bad. She says "but not as bad as some in the past." She denies SI/HI or hallucinations of any kind. The patient does verbalize feeling better each day. REVIEW OF SYSTEMS Constitutional: Negative for weight loss ENT: Negative for stridor Respiratory: Negative for cough or hemoptysis All other systems reviewed and are negative MENTAL STATUS EXAMINATION General Appearance and Behavior: Age appropriate, good hygiene, wearing appropriate clothes. Cooperation: Cooperative Psychomotor Behavior: Psychomotor normal Mood: good Affect and affective range: congruent with stated mood Thought Process: Goal directed Thought Content: optimism Speech: Normal volume, Regular rate and rhythm, Suicidal Ideation: denies Homicidal Ideation: Denies Hallucinations: Hallucinations per nursing staff Delusions: None Impulse Control: limited Insight and Judgment: Limited Memory: Limited Attention: attentive Orientation: alert and oriented Assessment and Plan (1)Polysubstance abuse with withdrawals (2) MDD Treatment Plan Agree with OPAL Olanzapine 7.5mg po daily Depakote DR 125mg po BID Zoloft 25mg po daily Increase Vistaril 50mg po BID SItter: per primary Medical: per primary Disposition: Recommend acute psychiatric inpatient treatment. The patient is improving, disposition might change once medically clear. Case staffed with Dr. Salinas Mental Status Exam - Vital signs Last Vital Signs Temp 97.5 F L 05/02/21 07:39 Pulse 69 05/02/21 07:39 Resp 18 05/02/21 07:39 BP 90/52 05/02/21 07:39 Pulse Ox 100 05/02/21 08:54
[2021-05-02] MEDS: THIAMINE 100 MG TAB PO SCH (10:43)
[2021-05-02] MEDS: DIVALPROEX DR 125 MG TAB PO SCH ×2 (10:43→22:49)
[2021-05-02] MEDS: SERTRALINE 25 MG TAB PO SCH (10:43)
[2021-05-02] MEDS: HEPARIN 5,000 UNIT/1 ML VIAL SUB-Q SCH ×2 (10:43→22:48)
[2021-05-02] MEDS: FAMOTIDINE 20 MG/2 ML INJ IV SCH ×2 (10:44→22:48)
--- NOTE | 2021-05-02 16:35 | Progress Note ---
Assessment and Plan Assessment and plan: The patient is a 21-year-old female with history of polysubstance abuse and major depressive disorder who presented for detox. #Alcohol withdrawal -continue CIWA protocol PRN -continue thiamine and folate supplementation -D5 half-normal saline discontinued -Psychiatry following, plan for transfer to inpatient psych facility -Talked with patient's mom who has arranged for inpatient treatment at the [facility] with possible bed being available -patient medically appropriate for transfer to psych facility #MDD -Management per Psychiatry -No current HI/SI #Polysubstance abuse -Patient agreeable to inpatient treatment for cocaine, methamphetamine and alcohol abuse #Swelling of upper lip -Improved, status post diphenhydramine and steroids #DVT prophylaxis -Continue subcutaneous heparin Disposition Plan: Inpatient Psych vs rehab facility Total Time Spent with Patient (Minutes): 30 minutes History Interval history: No acute events overnight. Patient reports feeling sleepy. Denies headache, chest pain, shortness of breath, tremors, visual and auditory hallucinations, and suicidal homicidal ideations. Hospitalist Physical - Constitutional Vitals: Temp Pulse Resp BP Pulse Ox 97.5 F L 69 18 90/52 100 05/02/21 07:39 05/02/21 07:39 05/02/21 07:39 05/02/21 07:39 05/02/21 08:54 General appearance: Present: no acute distress, well-nourished - EENT Eyes: Present: PERRL ENT: clear oral mucosa - Neck Neck: Present: supple - Respiratory Respiratory effort: normal Respiratory: bilateral: CTA - Cardiovascular Rhythm: regular - Extremities Extremities: pulses intact, pulses symmetrical, No edema - Abdominal General gastrointestinal: soft, non-tender, non-distended - Integumentary Integumentary: Present: warm, dry - Psychiatric Psychiatric: intact judgment & insight - Neurologic Neurologic: moves all extremities - Allied Health Allied health notes reviewed: nursing Results - Labs CBC & Chem 7: 04/30/21 04:11 04/30/21 04:11 Labs: Laboratory Last Values WBC 8.7 K/mm3 (4.5-11.0) 04/30/21 04:11 RBC 4.14 M/mm3 (3.65-5.03) 04/30/21 04:11 Hgb 14.0 gm/dl (10.1-14.3) 04/30/21 04:11 Hct 40.6 % (30.3-42.9) 04/30/21 04:11 MCV 98 fl (79-97) H 04/30/21 04:11 MCH 34 pg (28-32) H 04/30/21 04:11 MCHC 35 % (30-34) H 04/30/21 04:11 RDW 12.5 % (13.2-15.2) L 04/30/21 04:11 Plt Count 237 K/mm3 (140-440) 04/30/21 04:11 Lymph % (Auto) 5.3 % (13.4-35.0) L 04/27/21 16:55 [place] % (Auto) 7.8 % (0.0-7.3) H 04/27/21 16:55 Eos % (Auto) 0.0 % (0.0-4.3) 04/27/21 16:55 Baso % (Auto) 0.4 % (0.0-1.8) 04/27/21 16:55 Lymph # (Auto) 0.8 K/mm3 (1.2-5.4) L 04/27/21 16:55 [place] # (Auto) 1.2 K/mm3 (0.0-0.8) H 04/27/21 16:55 Eos # (Auto) 0.0 K/mm3 (0.0-0.4) 04/27/21 16:55 Baso # (Auto) 0.1 K/mm3 (0.0-0.1) 04/27/21 16:55 Add Manual Diff Complete 04/28/21 04:56 Total Counted 100 04/28/21 04:56 Seg Neutrophils % T[employer]ical [employer] Control Party Manager 04/28/21 04:56 Seg Neuts % (Manual) 88.0 % (40.0-70.0) H 04/28/21 04:56 Band Neutrophils % 3.0 % 04/28/21 04:56 Lymphocytes % (Manual) 4.0 % (13.4-35.0) L 04/28/21 04:56 Monocytes % (Manual) 5.0 % (0.0-7.3) 04/28/21 04:56 Nucleated RBC % Not Reportable 04/28/21 04:56 Seg Neutrophils # 13.0 K/mm3 (1.8-7.7) H 04/27/21 16:55 Seg Neutrophils # Man 11.7 K/mm3 (1.8-7.7) H 04/28/21 04:56 Band Neutrophils # 0.4 K/mm3 04/28/21 04:56 Lymphocytes # (Manual) 0.5 K/mm3 (1.2-5.4) L 04/28/21 04:56 Abs React Lymphs (Man) 0.0 K/mm3 04/28/21 04:56 Monocytes # (Manual) 0.7 K/mm3 (0.0-0.8) 04/28/21 04:56 Eosinophils # (Manual) 0.0 K/mm3 (0.0-0.4) 04/28/21 04:56 Basophils # (Manual) 0.0 K/mm3 (0.0-0.1) 04/28/21 04:56 Metamyelocytes # 0.0 K/mm3 04/28/21 04:56 Myelocytes # 0.0 K/mm3 04/28/21 04:56 Promyelocytes # 0.0 K/mm3 04/28/21 04:56 Blast Cells # 0.0 K/mm3 04/28/21 04:56 WBC Morphology Not Reportable 04/28/21 04:56 Hypersegmented Neuts Not Reportable 04/28/21 04:56 Hyposegmented Neuts Not Reportable 04/28/21 04:56 Hypogranular Neuts Not Reportable 04/28/21 04:56 Smudge Cells Not Reportable 04/28/21 04:56 Toxic Granulation Not Reportable 04/28/21 04:56 Toxic Vacuolation Not Reportable 04/28/21 04:56 Dohle Bodies Not Reportable 04/28/21 04:56 Pelger-Huet Anomaly Not Reportable 04/28/21 04:56 Jerson Rods Not Reportable 04/28/21 04:56 Platelet Estimate Consistent w auto 04/28/21 04:56 Clumped Platelets Not Reportable 04/28/21 04:56 Plt Clumps, EDTA Not Reportable 04/28/21 04:56 Large Platelets Not Reportable 04/28/21 04:56 Giant Platelets Not Reportable 04/28/21 04:56 Platelet Satelliting Not Reportable 04/28/21 04:56 Plt Morphology Comment Not Reportable 04/28/21 04:56 RBC Morphology Normal 04/28/21 04:56 Dimorphic RBCs Not Reportable 04/28/21 04:56 Polychromasia Not Reportable 04/28/21 04:56 Hypochromasia Not Reportable 04/28/21 04:56 Poikilocytosis Not Reportable 04/28/21 04:56 Anisocytosis Not Reportable 04/28/21 04:56 Microcytosis Not Reportable 04/28/21 04:56 Macrocytosis Not Reportable 04/28/21 04:56 Spherocytes Not Reportable 04/28/21 04:56 Pappenheimer Bodies Not Reportable 04/28/21 04:56 Sickle Cells Not Reportable 04/28/21 04:56 Target Cells Not Reportable 04/28/21 04:56 Tear Drop Cells Not Reportable 04/28/21 04:56 Ovalocytes Not Reportable 04/28/21 04:56 Helmet Cells Not Reportable 04/28/21 04:56 [place] Bodies Not Reportable 04/28/21 04:56 [place] Rings Not Reportable 04/28/21 04:56 [place] Cells Not Reportable 04/28/21 04:56 Bite Cells Not Reportable 04/28/21 04:56 Crenated Cell Not Reportable 04/28/21 04:56 Elliptocytes Not Reportable 04/28/21 04:56 Acanthocytes (Spur) Not Reportable 04/28/21 04:56 Rouleaux Not Reportable 04/28/21 04:56 Hemoglobin C Crystals Not Reportable 04/28/21 04:56 Schistocytes Not Reportable 04/28/21 04:56 Malaria parasites Not Reportable 04/28/21 04:56 Yusuf Bodies Not Reportable 04/28/21 04:56 Hem Pathologist Commnt No 04/28/21 04:56 Sodium 136 mmol/L (137-145) L 04/30/21 04:11 Potassium 3.8 mmol/L (3.6-5.0) 04/30/21 04:11 Chloride 99.0 mmol/L (98-107) 04/30/21 04:11 Carbon Dioxide 24 mmol/L (22-30) 04/30/21 04:11 Anion Gap 17 mmol/L 04/30/21 04:11 BUN 14 mg/dL (7-17) 04/30/21 04:11 Creatinine 0.6 mg/dL (0.6-1.2) 04/30/21 04:11 Estimated GFR > 60 ml/min 04/30/21 04:11 BUN/Creatinine Ratio 23 % 04/30/21 04:11 Glucose 101 mg/dL (65-100) H 04/30/21 04:11 Calcium 9.8 mg/dL (8.4-10.2) 04/30/21 04:11 Phosphorus 2.80 mg/dL (2.5-4.5) 04/27/21 16:48 Magnesium 2.10 mg/dL (1.7-2.3) 04/30/21 04:11 Total Bilirubin 1.70 mg/dL (0.1-1.2) H 04/27/21 16:48 Direct Bilirubin 0.4 mg/dL (0-0.2) H 04/27/21 16:48 Indirect Bilirubin 1.3 mg/dL 04/27/21 16:48 AST 76 units/L (5-40) H 04/27/21 16:48 ALT 32 units/L (7-56) 04/27/21 16:48 Alkaline Phosphatase 98 units/L (35-129) 04/27/21 16:48 Total Protein 8.4 g/dL (6.3-8.2) H 04/27/21 16:48 Albumin 5.4 g/dL (3.9-5) H 04/27/21 16:48 Albumin/Globulin Ratio 1.8 % 04/27/21 16:48 HCG, Qual Negative (Negative) 04/27/21 16:55 Urine Color [place] (Yellow) 04/28/21 Unknown Urine Turbidity Cloudy (Clear) 04/28/21 Unknown Urine pH 6.0 (5.0-7.0) 04/28/21 Unknown Ur Specific [place] 1.025 (1.003-1.030) 04/28/21 Unknown Urine Protein 100 mg/dl mg/dL (Negative) 04/28/21 Unknown Urine Glucose (UA) Neg mg/dL (Negative) 04/28/21 Unknown Urine Ketones 20 mg/dL (Negative) 04/28/21 Unknown Urine Blood Neg (Negative) 04/28/21 Unknown Urine Nitrite Neg (Negative) 04/28/21 Unknown Urine Bilirubin Neg (Negative) 04/28/21 Unknown Urine Urobilinogen 2.0 mg/dL (<2.0) 04/28/21 Unknown Ur Leukocyte Esterase Neg (Negative) 04/28/21 Unknown Urine WBC (Auto) 13.0 /HPF (0.0-6.0) H 04/28/21 Unknown Urine RBC (Auto) 1.0 /HPF (0.0-6.0) 04/28/21 Unknown U Epithel Cells (Auto) < 1.0 /HPF (0-13.0) 04/28/21 Unknown Urine Bacteria (Auto) 3+ /HPF (Negative) 04/28/21 Unknown Urine Mucus 3+ /HPF 04/28/21 Unknown Urine Opiates Screen Presumptive negative 04/28/21 Unknown Urine Methadone Screen Presumptive negative 04/28/21 Unknown Ur Barbiturates Screen Presumptive negative 04/28/21 Unknown Ur Phencyclidine Scrn Presumptive negative 04/28/21 Unknown Ur Amphetamines Screen Presumptive positive 04/28/21 Unknown U Benzodiazepines Scrn Presumptive negative 04/28/21 Unknown Urine Cocaine Screen Presumptive negative 04/28/21 Unknown U Marijuana (THC) Screen Presumptive positive 04/28/21 Unknown Drugs of Abuse Note Disclamer 04/28/21 Unknown Plasma/Serum Alcohol < 0.01 % (0-0.07) 04/27/21 16:55 [place]/IV: Voiding Method Toilet Active Medications - Current Medications Current Medications: Generic Name Dose Route Start Last Admin Trade Name Freq PRN Reason Stop Dose Admin Acetaminophen 650 mg 04/27/21 23:48 Acetaminophen 325 Mg Tab PO Q4H PRN Pain MILD(1-3)/Fever >100.5/MISHRA Albuterol 2.5 mg 04/27/21 23:48 Albuterol 2.5 Mg/3 Ml Nebu IH Q4HRT PRN Shortness Of Breath Divalproex Sodium 125 mg 04/30/21 12:00 05/02/21 10:[address] 125 Mg Tab PO 125 mg BID MARÍA Administration Famotidine 20 mg 04/28/21 10:00 05/02/21 10:44 Famotidine 20 Mg/2 Ml Inj IV 20 mg BID MARÍA Administration Haloperidol Lactate 5 mg 04/27/21 23:48 04/30/21 21:27 Haloperidol Lactate 5 Mg/1 Ml Inj IV 5 mg Q1H PRN Administration Unrespon. to mult. doses BZD's Heparin Sodium (Porcine) 5,000 unit 04/28/21 10:00 05/02/21 10:43 Heparin 5,000 Unit/1 Ml Vial SUB-Q 5,000 unit Q12HR MARÍA Administration Hydromorphone HCl 0.5 mg 04/27/21 23:48 04/30/21 05:03 Hydromorphone 1 Mg/1 Ml Inj IV 0.5 mg Q3H PRN Administration Pain , Severe (7-10) Hydroxyzine Pamoate 50 mg 04/30/21 11:00 05/02/21 10:43 Hydroxyzine Pamoate 50 Mg Cap PO 50 mg BID MARÍA Administration Ceftriaxone Sodium 2 gm in 100 mls @ 200 mls/hr 04/28/21 01:00 05/02/21 02:17 Rocephin/Ns 2 Gm/100 Ml IV 05/04/21 01:29 200 mls/hr Q24H MARÍA Administration Protocol Lorazepam 2 mg 04/27/21 19:34 04/30/21 05:03 Lorazepam 2 Mg/Ml Vial IV 2 mg Q1HR PRN Administration [facility] 8-15 Lorazepam 4 mg 04/27/21 19:34 04/30/21 08:45 Lorazepam 2 Mg/Ml Vial IV 4 mg Q1HR PRN Administration [facility] 16-25 Olanzapine 7.5 mg 04/30/21 12:00 05/02/21 10:43 Olanzapine 7.5 Mg Tab PO 7.5 mg QDAY MARÍA Administration Ondansetron HCl 4 mg 04/30/21 11:11 Ondansetron 4 Mg/2 Ml Inj IV Q8H PRN Nausea And Vomiting Oxycodone/Acetaminophen 1 tab 04/27/21 23:48 Oxycodone /Acetaminophen 5-325mg Tab PO Q6H PRN Pain, Moderate (4-6) Sertraline HCl 25 mg 04/28/21 13:00 05/02/21 10:43 Sertraline 25 Mg Tab PO 25 mg QDAY MARÍA Administration Thiamine HCl 100 mg 04/29/21 10:00 05/02/21 10:43 Thiamine 100 Mg Tab PO 100 mg QDAY MARÍA Administration Trazodone HCl 50 mg 04/28/21 22:00 05/01/21 21:49 Trazodone 50 Mg Tab PO 50 mg QHS MARÍA Administration
[2021-05-02] MEDS: traZODone 50 MG TAB PO SCH (22:49)
[2021-05-03] MEDS: cefTRIAXone/NS 2 GM/100 ML 2 GM/100 ML BAG IV SCH (01:35)
[2021-05-03 09:23] LABS: Blood Urea Nitrogen 14 mg/dL (7-17); Calcium 9.8 mg/dL (8.4-10.2); Hemolysis Index 22
[2021-05-03 09:26] LABS: BUN/Creatinine Ratio 20
[2021-05-03] MEDS: HEPARIN 5,000 UNIT/1 ML VIAL SUB-Q SCH (10:54)
[2021-05-03] MEDS: THIAMINE 100 MG TAB PO SCH (10:55)
[2021-05-03] MEDS: SERTRALINE 25 MG TAB PO SCH (10:55)
[2021-05-03] MEDS: FAMOTIDINE 20 MG/2 ML INJ IV SCH (10:55)
[2021-05-03] MEDS: DIVALPROEX DR 125 MG TAB PO SCH (10:55)
--- NOTE | 2021-05-03 11:44 | Progress Note ---
Subjective - Reason for Consult Consult date: 05/03/21 Reason for consult: SI, Detox - Chief Complaint Chief complaint: The patient was seen today. She appears much better today. She is calm and cooperative. She verbalizes "feeling good today." She says she slept well. The patent denies SI/HI. She also denies hallucinations of any kind. She says she's going to a treatment center. The patient says "I think my mom is going to drive me there." Taniya says she feels good about her future. I spoke with the patient's mother today. I discussed the patient's progress with mom. She says she has secured the patient a bed at [facility] for 30 days. Mom says she's afraid they will give the patient's bed away if she doesn't get there soon. Mom says she can pick the patient up and drive her straight there. I informed mom that I would get with the primary doc and discharge the patient in her care to drive to the facility. REVIEW OF SYSTEMS Constitutional: Negative for weight loss ENT: Negative for stridor Respiratory: Negative for cough or hemoptysis All other systems reviewed and are negative MENTAL STATUS EXAMINATION General Appearance and Behavior: Age appropriate, good hygiene, wearing appropri ate clothes. Cooperation: Cooperative Psychomotor Behavior: Psychomotor normal Mood: good Affect and affective range: congruent with stated mood Thought Process: Goal directed Thought Content: optimism Speech: Normal volume, Regular rate and rhythm, Suicidal Ideation: denies Homicidal Ideation: Denies Hallucinations: Denies Delusions: None Impulse Control: limited Insight and Judgment: Limited Memory: Limited Attention: attentive Orientation: alert and oriented Assessment and Plan (1)Polysubstance abuse with withdrawals (2) MDD Treatment Plan d/c 1013 Olanzapine 7.5mg po daily Depakote DR 125mg po BID Zoloft 25mg po daily Vistaril 50mg po BID SItter: per primary Medical: per primary Disposition: Do not recommend acute psychiatric inpatient treatment. The patient may discharge home in the mother's care if cleared from a medical standpoint. The patient understands that if SI/HI or any fear of endangerment are to arise she is to seek immediate assistance. The patient is to abstain from all illicit drug use and alcohol The proof coin collector is to give the patient all necessary outpatient resources The proof coin collector to further discuss safety plan Will sign off. Thank you. Case staffed with Dr. Salinas Mental Status Exam - Vital signs Last Vital Signs Temp 97.5 F L 05/03/21 08:41 Pulse 77 05/03/21 08:41 Resp 16 05/03/21 08:41 BP 99/58 05/03/21 08:41 Pulse Ox 100 05/03/21 08:45
--- NOTE | 2021-05-03 12:01 | Discharge Summary ---
Providers - Providers Date of Admission: 04/28/21 11:35 Date of discharge: 05/03/21 Attending physician: ALYCIA CONKLIN MD 04/28/21 00:06 psychiatry consult [Consult to Mental Health] [CONS] Routine Reason For Exam: Delirium tremens Primary care physician: SWITCHBOARD MANAGER Hospitalization Condition: Stable Hospital course: 21-year-old female with history of anxiety, depression, and polysubstance abuse who presented to the ED on 04/27 requesting to detox. She reported having auditory and visual hallucinations. She is admitted for treatment of delirium tremens. Psychiatry was consulted and the patient was placed on a 1013. CIWA protocol was started. During infusion of banana bag, patient started to experience angioedema of the lips. She was treated with steroids and diphenhydramine with complete resolution. Her symptoms greatly improved and she became medically stable for transfer to [facility] for further care. The patient was discharged in the care of her mother. Disposition: 01 HOME / SELF CARE / HOMELESS Final Discharge Diagnosis (Prints w/discharge instructions): Delirium Tremens. Major Depressive Disorder Time spent for discharge: 20 minutes Core Measure Documentation - Palliative Care Palliative Care/ Comfort Measures: Not Applicable - Core Measures Any of the following diagnoses?: none - VTE Discharge Requirements Deep Vein Thrombosis/Pulmonary Embolism Present on Admission: No - Acute DC Discharge Requirements Aspirin at discharge: No Reason for no aspirin on DC: Medical contraindication (not indicated) ABHIJEET/ARB for LVSD if EF <40%: Not Applicable Beta mara at discharge: No Reason for no beta mara on DC: Medical contraindication (not indicated) Statin for LDL = or >100 mg/dl on DC: Not Applicable - Heart Failure Discharge Requirements ABHIJEET/ARB for LVSD if EF <40%: Not Applicable - Stroke Discharge Requirements Statin for LDL = or >70 mg/dl on DC: Not Applicable Reason for no statin on DC: Not Indicated Anticoag for atrial fib/atrial flutter: Not Applicable Reason for no anticoag for AF/F on DC: Not Indicated Antithrombotic for ischemic stroke: No Reason for no antithrombotic on DC: Not Indicated Exam - Physical Exam Narrative exam: GENERAL: Thin woman, lying in bed. CHEST/LUNGS: CTAB on room air HEART/CARDIOVASCULAR: RRR. No murmur, rubs or gallops appreciated. ABDOMEN: +BS. NT/ND. SKIN: No rashes noted. NEURO: No focal motor deficit. Follows all commands and is ambulatory. EXTREMITIES: No cyanosis, cubbing or edema. PSYCH: Cooperative. No SI/HI. No visual, auditory or tactile hallucinations. - Constitutional Vitals: Temp Pulse Resp BP Pulse Ox 97.5 F L 77 16 99/58 100 05/03/21 08:41 05/03/21 08:41 05/03/21 08:41 05/03/21 08:41 05/03/21 08:45 Plan Care Plan Goals: Discharge to the care of her Mother to be transported to the rehabilitation center. Assessment: Stable. No longer in withdrawal and free of suicidal and homicidal ideations. Follow up with: PRIMARY CARE, [Primary Care Provider] - 7 Days Prescriptions: Divalproex [Grace MALDONADO] 125 mg PO BID #60 tablet OLANZapine [Olanzapine] 7.5 mg PO DAILY #30 tablet hydrOXYzine PAMOATE [Vistaril] 50 mg PO BID PRN #60 capsule PRN Reason: Anxiety Sertraline [Zoloft] 25 mg PO QDAY #30 tab
[2021-05-03 12:08] VITALS: BP 93/59
== END 2021-05-03 16:08 | DRG 897 ==
LOC: ED 16:25 → 4A 23:32 → OBSVTOIN 04-28 11:35 → 4A 04-29 00:58
PROVIDERS: ADMIT Hospitalist; ATTEND Student in an Organized Health Care Education/Training Program
DX: F10.231 Alcohol dependence with withdrawal delirium (principal); N39.0 Urinary tract infection, site not specified; F19.10 Other psychoactive substance abuse, uncomplicated; F32.9 Major depressive disorder, single episode, unspecified; F41.9 Anxiety disorder, unspecified; T78.3XXA Angioneurotic edema, initial encounter; B96.20 Unspecified Escherichia coli [E. coli] as the cause of diseases classified elsewhere
CPT/HCPCS: 36415; 80048; 80076; 80307; 80320; 81001; 83735; 84100; 84703; 85007; 85025; 85027; 87076; 87086; 87186; 94640; G0378; G0480; J0696; J1170; J1200; J1630; J1644; J2060; J2920; J2930; J3411; J3475; J7030; Q0177